=== PATIENT | male | born 1990 | race Two or more races ===

== ENCOUNTER 2023-02-11 22:55 | Inpatient (IN) | payer MEDICAID, OTHER ==
[~2023-02-11] VITALS: Ht 182.9 cm; Wt 73.8 kg
[2023-02-11 23:55] LABS: Basophils # (auto) 0.1 10 ^3/uL (0-0.2); Lymphocytes # (auto) 1.4 10 ^3/uL (0.4-5.4)
[2023-02-11 23:56] LABS: Basophils % (auto) 0.4 % (0.0-2.0); Eosinophils # (auto) 0.1 10 ^3/uL (0-0.8); Eosinophils % (auto) 0.8 % (0.0-7.0); Hematocrit 34.7 % (41.0-53.0); Hemoglobin 11.1 g/dL (13.5-17.5); Lymphocytes % (auto) 7.9 % (10.0-50.0); Mean Corpuscular Hemoglobin 23.8 pg (28.0-32.0); Mean Corpuscular Hgb Conc. 32.1 g/dL (32.0-36.0); Mean Corpuscular Volume 74.1 fL (80.0-100.0); Monocytes # (auto) 1.6 10 ^3/uL (0-1.3); Monocytes % (auto) 9.2 % (0.0-12.0); Neutrophils # (auto) 14.3 10 ^3/uL (1.6-8.6); Neutrophils % (auto) 81.7 % (37.0-80.0); Nucleated Red Blood Cells % 0.1 %; Red Blood Cells 4.68 10^6/uL (4.5-5.90); Red Cell Distribution Width 19.2 % (11.8-14.3); White Blood Cell 17.5 10^3/uL (4.4-10.8)
[2023-02-12] VITALS (7 sets, daily range): BP systolic 113; BP diastolic 58; PULSE 64–92; RESP 16–27; TEMP 97.4; O2SAT 95–100
[2023-02-12] MEDS ORDERED: IPRATROPIUM BROM 0.5 MG/2.5ML INH SOL NEB ONE
[2023-02-12 00:12] LABS: INR 1.15 (0.9-1.15); Partial Thromboplastin Time 29.6 SEC (24.5-34.5)
[2023-02-12 00:13] LABS: Alanine Aminotransferase 398 U/L (7-40); Albumin 4.2 g/dL (3.2-4.8); Alkaline Phosphatase 239 U/L (46-116); Anion Gap 8 (5-15); Aspartate Aminotransferase 210 U/L (13-40); BUN/Creatinine Ratio 22.9 (10.0-20.0); Blood Urea Nitrogen 8 mg/dL (9-23); Calcium 9.5 mg/dL (8.7-10.4); Carbon Dioxide 28 mmol/L (20-30); Chloride 96 mmol/L (98-107); Glucose 100 mg/dL (74-106); Potassium 3.7 mmol/L (3.5-5.1); Sodium 132 mmol/L (136-145)
[2023-02-12 00:14] LABS: Bilirubin, Total 0.7 mg/dL (0.2-1.0); Total Protein 8.5 g/dL (5.7-8.2)
[2023-02-12] MEDS ORDERED: TOBRAMYCIN 300 MG/5 ML NEB SOLN NEB ONE (01:00)
[2023-02-12] MEDS ORDERED: IBUPROFEN 100MG/5ML ORAL SUSP 100 MG/5 ML UD GT ONE (01:00)
[2023-02-12] MEDS ORDERED: ACETAMINOPHEN 650 mg PER 20.3 mL UD GT ONE (01:00)
[2023-02-12] MEDS ORDERED: LACTATED RINGER'S 2,050 ML IV ONE (01:00)
[2023-02-12] MEDS ORDERED: DexAMETHasone SOD PHOS 10MG/1ML VIAL INJ IV ONE (01:00)
[2023-02-12] MEDS ORDERED: VANCOMYCIN 1GM/200ML 250 ML IV ONE (01:00)
[2023-02-12] MEDS ORDERED: PIPERACILLIN-TAZOB 3.375GM 100 ML IV ONE (01:00)
[2023-02-12] MEDS ORDERED: ACETYLCYSTEINE 20%(200MG/ML) SOL 4ML NEB ONE ×2 (01:00→04:00)
[2023-02-12] MEDS ORDERED: ALBUTEROL MEDNEB 2.5 mg/3ml NEB NEB ONE ×3 (01:15→04:00)
[2023-02-12] MEDS ORDERED: IOHEXOL 350 MG/ML 100ML IJ ONE (01:57)
[2023-02-12 02:48] LABS: Urine Bacteria NONE SEEN /hpf (None Seen); Urine Blood Negative /uL (Negative); Urine Clarity Clear (Clear); Urine Color Yellow (Yellow); Urine Protein, UAD 1+ (Negative); Urine WBC 2 /hpf (0 - 3)
[2023-02-12] MEDS ORDERED: VANCOMYCIN PER PHARMACY 0 MG IV SCH (07:00)
[2023-02-12] MEDS ORDERED: D5W/SOD CHLO 0.9% 1,000 ML IV SCH (07:00)
[2023-02-12] MEDS ORDERED: NITROGLYCERIN 0.4 MG SL TAB SL PRN (07:00)
[2023-02-12] MEDS ORDERED: MORPHINE SULFATE INJ 2 MG/ml SYRG IV PRN (07:00)
[2023-02-12 08:28] LABS: Basophils # (auto) 0 10 ^3/uL (0-0.2); Basophils % (auto) 0.2 % (0.0-2.0); Eosinophils # (auto) 0 10 ^3/uL (0-0.8); Hematocrit 32.7 % (41.0-53.0); Hemoglobin 9.9 g/dL (13.5-17.5); Lymphocytes # (auto) 0.6 10 ^3/uL (0.4-5.4); Mean Corpuscular Hemoglobin 22.3 pg (28.0-32.0); Mean Corpuscular Hgb Conc. 30.3 g/dL (32.0-36.0); Mean Corpuscular Volume 73.7 fL (80.0-100.0); Monocytes # (auto) 0.3 10 ^3/uL (0-1.3); Monocytes % (auto) 1.7 % (0.0-12.0); Neutrophils # (auto) 17.9 10 ^3/uL (1.6-8.6); Neutrophils % (auto) 95.1 % (37.0-80.0); Red Blood Cells 4.43 10^6/uL (4.5-5.90); Red Cell Distribution Width 19.3 % (11.8-14.3); White Blood Cell 18.9 10^3/uL (4.4-10.8)
[2023-02-12 08:46] LABS: % Iron Saturation 9.4 % (20-55); Alanine Aminotransferase 310 U/L (7-40); Albumin 3.7 g/dL (3.2-4.8); Alkaline Phosphatase 196 U/L (46-116); Anion Gap 6 (5-15); Aspartate Aminotransferase 108 U/L (13-40); BUN/Creatinine Ratio 18.8 (10.0-20.0); Blood Urea Nitrogen 6 mg/dL (9-23); Calcium 8.9 mg/dL (8.5-10.1); Carbon Dioxide 29 mmol/L (20-30); Chloride 100 mmol/L (98-107); Glucose 132 mg/dL (74-106); LDL Cholesterol 75 mg/dL (< 100); Potassium 3.9 mmol/L (3.5-5.1); Sodium 135 mmol/L (136-145); Triglycerides 69 mg/dL (< 150)
[2023-02-12 08:47] LABS: Bilirubin, Total 0.6 mg/dL (0.2-1.0); Cholesterol 110 mg/dL (< 200); HDL Cholesterol 21 mg/dL (40-59); Total Protein 7.6 g/dL (5.7-8.2)
[2023-02-12 08:55] LABS: CRP High Sensitivity 9.14 mg/dL (<1.0)
[2023-02-12] MEDS ORDERED: EPINEPHrine HCL 1 MG/1 ML AMP ONE ×2 (09:01→09:11)
[2023-02-12] MEDS ORDERED: SODIUM CHLORIDE LOCK 10 ML ONE (09:01)
[2023-02-12] MEDS ORDERED: LIDOCAINE 2%HCL (LOCAL ANESTH.) INJ 20ML MDV ONE ×2 (09:01→09:11)
[2023-02-12] MEDS ORDERED: GLYCOPYRROLATE 0.2 MG/ML 1ML VIAL ONE (09:02)
[2023-02-12] MEDS ORDERED: fentaNYL CITRATE 100 MCG/2 ML VL ONE (09:02)
[2023-02-12] MEDS ORDERED: LIDOCAINE 2% JELLY 11ml (GLYDO) ONE (09:17)
[2023-02-12 09:33] LABS: Magnesium 1.8 mg/dL (1.6-2.6)
[2023-02-12] MEDS: MIDAZOLAM HCL 5 MG/ML-1ML VIAL ONE (09:46)
[2023-02-12] MEDS ORDERED: FLEET ENEMA(ADULT) 135 ML PR ONE (10:15)
[2023-02-12] MEDS ORDERED: VANCOMYCIN 1GM/200ML 250 ML IV SCH (11:00)
[2023-02-12 11:40] LABS: Base Excess 1.7 mmol/L (-2.0-2.0)
[2023-02-12] MEDS: ACETYLCYSTEINE 10 %(100MG/ML) SOL 4ML NEB SCH ×2 (12:31→18:29)
[2023-02-12] MEDS: ALBUTEROL MEDNEB 2.5 mg/3ml NEB NEB PRN ×2 (12:31→18:28)
[2023-02-12] MEDS: PIPERACILLIN-TAZOB 3.375GM 100 ML IV SCH ×2 (12:50→17:42)
[2023-02-12] MEDS: IPRATROPIUM BROM 0.5 MG/2.5ML INH SOL NEB PRN (18:28)
[2023-02-12] MEDS: VANCOMYCIN 1GM/200ML 250 ML IV SCH (18:55)
[2023-02-12] MEDS: DOCUSATE ORAL LIQUID 100 MG/10 ML UD GT SCH (22:39)
[2023-02-12 23:12] LABS: Free T3 2.04 pg/mL (2.3-4.2); Free T4 (Free Thyroxine) 1.16 ng/dL (0.89-1.76)
[2023-02-12] MEDS: ERGOCALCIFEROL 50,000 UNIT(1.25MG) CAP PO SCH (23:42)
[2023-02-13] VITALS (16 sets, daily range): BP systolic 112–144; BP diastolic 70–92; PULSE 78–107; RESP 20–32; TEMP 98.5–99.1; O2SAT 94–100
[2023-02-13] MEDS: ALBUTEROL MEDNEB 2.5 mg/3ml NEB NEB PRN ×4 (00:24→19:09)
[2023-02-13] MEDS: IPRATROPIUM BROM 0.5 MG/2.5ML INH SOL NEB PRN (00:24)
[2023-02-13] MEDS: PIPERACILLIN-TAZOB 3.375GM 100 ML IV SCH ×3 (00:25→15:27)
[2023-02-13 00:32] LABS: Amphetamine Screen, Urine Neg (NEGATIVE); Barbiturate Scree,Urine Neg (NEGATIVE); Benzodiazephine Screen, Urine Neg (NEGATIVE); Cannabinoid Screen, Urine Neg (NEGATIVE); Cocaine Screen, Urine Neg (NEGATIVE); Opiate Scree,Urine Neg (NEGATIVE); Phencyclidine Screen, Urine Neg (NEGATIVE)
[2023-02-13] MEDS: ACETYLCYSTEINE 10 %(100MG/ML) SOL 4ML NEB SCH ×4 (00:33→19:09)
[2023-02-13] MEDS: VANCOMYCIN 1GM/200ML 250 ML IV SCH ×4 (01:30→21:16)
[2023-02-13 05:54] LABS: Basophils # (auto) 0.1 10 ^3/uL (0-0.2); Eosinophils # (auto) 0.1 10 ^3/uL (0-0.8); Eosinophils % (auto) 0.8 % (0.0-7.0); Hemoglobin 9.4 g/dL (13.5-17.5); Monocytes # (auto) 1.3 10 ^3/uL (0-1.3); Red Cell Distribution Width 19.2 % (11.8-14.3)
[2023-02-13 05:55] LABS: Basophils % (auto) 1.2 % (0.0-2.0); Lymphocytes # (auto) 2.4 10 ^3/uL (0.4-5.4); Lymphocytes % (auto) 18.9 % (10.0-50.0); Mean Corpuscular Hemoglobin 23.1 pg (28.0-32.0); Mean Corpuscular Hgb Conc. 31.4 g/dL (32.0-36.0); Mean Corpuscular Volume 73.7 fL (80.0-100.0); Neutrophils % (auto) 69.1 % (37.0-80.0); Red Blood Cells 4.08 10^6/uL (4.5-5.90); White Blood Cell 12.9 10^3/uL (4.4-10.8)
[2023-02-13 06:11] LABS: Alanine Aminotransferase 167 U/L (7-40); Albumin 2.7 g/dL (3.2-4.8); Alkaline Phosphatase 123 U/L (46-116); Anion Gap 11 (5-15); Aspartate Aminotransferase 35 U/L (13-40); BUN/Creatinine Ratio 31.3 (10.0-20.0); Bilirubin, Total 0.3 mg/dL (0.2-1.0); Blood Urea Nitrogen 5 mg/dL (9-23); Calcium 6.8 mg/dL (8.5-10.1); Carbon Dioxide 25 mmol/L (20-30); Chloride 101 mmol/L (98-107); Glucose 86 mg/dL (74-106); Potassium 2.9 mmol/L (3.5-5.1); Sodium 137 mmol/L (136-145); Total Protein 5.4 g/dL (5.7-8.2)
[2023-02-13 06:20] LABS: CRP High Sensitivity 3.73 mg/dL (<1.0)
[2023-02-13] MEDS: CALCIUM GLUC 1,000mg/50ml-NS 50 ML IV SCH ×2 (08:21→09:01)
[2023-02-13] MEDS: POTASSIUM CHL 20MEQ/100ML 100 ML IV SCH ×2 (09:38→11:36)
[2023-02-13] MEDS: DOCUSATE ORAL LIQUID 100 MG/10 ML UD GT SCH ×2 (10:00→21:16)
[2023-02-13] MEDS ORDERED: NALOXONE HCL 0.4 MG/ML VIAL ONE (10:38)
[2023-02-13] MEDS ORDERED: SODIUM CHLORIDE LOCK 10 ML ONE (10:39)
[2023-02-13] MEDS ORDERED: FLUMAZENIL 0.1 MG/ML INJ 10ML MDV IV ONE (10:39)
[2023-02-13] MEDS ORDERED: LIDOCAINE 2%HCL (LOCAL ANESTH.) INJ 20ML MDV ONE (10:39)
[2023-02-13] MEDS ORDERED: EPINEPHrine HCL 1 MG/1 ML AMP ONE (10:39)
[2023-02-13] MEDS ORDERED: diphenhdrAMINE HCL 50 MG/1 ML VL ONE (10:40)
[2023-02-13] MEDS ORDERED: GLYCOPYRROLATE 0.2 MG/ML 1ML VIAL ONE (10:40)
[2023-02-13] MEDS ORDERED: MIDAZOLAM HCL 5 MG/ML-1ML VIAL ONE (10:40)
[2023-02-13] MEDS: MIDAZOLAM HCL 5 MG/ML-1ML VIAL ONE ×2 (11:03→11:04)
[2023-02-13] MEDS: fentaNYL CITRATE 100 MCG/2 ML VL ONE ×3 (11:03→11:08)
[2023-02-13] MEDS ORDERED: IRON SUCROSE COMPLEX 200 MG in SODIUM CHL 0.9% 100 ML IV SCH (12:00)
[2023-02-13] MEDS: ENOXAPARIN SOD 40 MG/0.4 ML SYRINGE SC SCH (13:35)
[2023-02-13] MEDS: SODIUM FERR GLUC 62.5MG/5ML 125 MG in SODIUM CHL 0.9% 100 ML IV SCH (14:23)
[2023-02-14] VITALS (31 sets, daily range): BP systolic 102–131; BP diastolic 62–88; PULSE 66–103; RESP 18–33; TEMP 98.5–100.3; O2SAT 94–100
[2023-02-14] MEDS: ALBUTEROL MEDNEB 2.5 mg/3ml NEB NEB PRN ×4 (00:06→18:04)
[2023-02-14] MEDS: ACETYLCYSTEINE 10 %(100MG/ML) SOL 4ML NEB SCH ×4 (00:06→18:04)
[2023-02-14] MEDS: PIPERACILLIN-TAZOB 3.375GM 100 ML IV SCH ×5 (00:36→18:08)
[2023-02-14] MEDS: VANCOMYCIN 1GM/200ML 250 ML IV SCH ×4 (00:37→18:56)
[2023-02-14 04:34] LABS: Eosinophils # (auto) 0.2 10 ^3/uL (0-0.8); Eosinophils % (auto) 1.1 % (0.0-7.0); Hemoglobin 9.7 g/dL (13.5-17.5); Monocytes # (auto) 1.6 10 ^3/uL (0-1.3)
[2023-02-14 04:37] LABS: Basophils # (auto) 0.1 10 ^3/uL (0-0.2); Basophils % (auto) 0.3 % (0.0-2.0); Hematocrit 31.2 % (41.0-53.0); Lymphocytes # (auto) 1.3 10 ^3/uL (0.4-5.4); Lymphocytes % (auto) 8.1 % (10.0-50.0); Mean Corpuscular Hemoglobin 23.1 pg (28.0-32.0); Mean Corpuscular Hgb Conc. 31.1 g/dL (32.0-36.0); Mean Corpuscular Volume 74.2 fL (80.0-100.0); Monocytes % (auto) 10.3 % (0.0-12.0); Neutrophils # (auto) 12.6 10 ^3/uL (1.6-8.6); Neutrophils % (auto) 80.2 % (37.0-80.0); Red Blood Cells 4.21 10^6/uL (4.5-5.90); Red Cell Distribution Width 19.3 % (11.8-14.3); White Blood Cell 15.7 10^3/uL (4.4-10.8)
[2023-02-14 05:08] LABS: Alanine Aminotransferase 168 U/L (7-40); Albumin 3.7 g/dL (3.2-4.8); Alkaline Phosphatase 161 U/L (46-116); Aspartate Aminotransferase 33 U/L (13-40); BUN/Creatinine Ratio 7.7 (10.0-20.0); Bilirubin, Total 0.5 mg/dL (0.2-1.0); Blood Urea Nitrogen 5 mg/dL (9-23); Glucose 97 mg/dL (74-106); Total Protein 7.4 g/dL (5.7-8.2)
[2023-02-14 05:16] LABS: Chloride 103 mmol/L (98-107); Potassium 3.2 mmol/L (3.5-5.1); Sodium 138 mmol/L (136-145)
[2023-02-14 05:18] LABS: CRP High Sensitivity 4.76 mg/dL (<1.0)
[2023-02-14 05:19] LABS: Anion Gap 10 (5-15); Calcium 8.9 mg/dL (8.7-10.4); Carbon Dioxide 25 mmol/L (20-30)
[2023-02-14] MEDS: IPRATROPIUM BROM 0.5 MG/2.5ML INH SOL NEB PRN ×3 (05:58→18:04)
[2023-02-14] MEDS: DOCUSATE ORAL LIQUID 100 MG/10 ML UD GT SCH ×2 (10:52→22:00)
[2023-02-14] MEDS: ENOXAPARIN SOD 40 MG/0.4 ML SYRINGE SC SCH (10:53)
[2023-02-14 11:34] LABS: Base Excess 2.2 mmol/L (-2.0-2.0)
[2023-02-14] MEDS: SODIUM FERR GLUC 62.5MG/5ML 125 MG in SODIUM CHL 0.9% 100 ML IV SCH (12:20)
[2023-02-14] MEDS ORDERED: CLINIMIX PER PHARMACY 0 ML IV SCH (17:00)
[2023-02-14] MEDS: POTASSIUM CHL 20MEQ/100ML 100 ML IV SCH ×2 (18:00→20:56)
[2023-02-14 19:05] LABS: Magnesium 1.8 mg/dL (1.6-2.6)
[2023-02-14 19:06] LABS: Phosphorus 3.8 mg/dL (2.4-5.1)
[2023-02-14] MEDS ORDERED: AMINO ACID INFUSION IN D10W 1,000 ML IV NR (20:00)
[2023-02-15] VITALS (27 sets, daily range): BP systolic 92–140; BP diastolic 50–91; PULSE 75–115; RESP 17–40; TEMP 98.7–100.3; O2SAT 8–99
[2023-02-15] MEDS ORDERED: DEXTROSE (50%) 50ML SYRG IV SCH
[2023-02-15] MEDS: IPRATROPIUM BROM 0.5 MG/2.5ML INH SOL NEB PRN (00:20)
[2023-02-15] MEDS: ACETYLCYSTEINE 10 %(100MG/ML) SOL 4ML NEB SCH ×5 (00:20→23:08)
[2023-02-15] MEDS: ALBUTEROL MEDNEB 2.5 mg/3ml NEB NEB PRN ×5 (00:20→23:08)
[2023-02-15] MEDS: VANCOMYCIN 1GM/200ML 250 ML IV SCH (01:00)
[2023-02-15] MEDS: POTASSIUM CHL 20MEQ/100ML 100 ML IV SCH (01:46)
[2023-02-15] MEDS: PIPERACILLIN-TAZOB 3.375GM 100 ML IV SCH ×4 (01:47→17:33)
[2023-02-15 05:04] LABS: Alanine Aminotransferase 112 U/L (7-40); Albumin 3.6 g/dL (3.2-4.8); Alkaline Phosphatase 144 U/L (46-116); Anion Gap 6 (5-15); Aspartate Aminotransferase 18 U/L (13-40); BUN/Creatinine Ratio 6.1 (10.0-20.0); Bilirubin, Total 0.6 mg/dL (0.2-1.0); Blood Urea Nitrogen 5 mg/dL (9-23); Calcium 8.8 mg/dL (8.7-10.4); Carbon Dioxide 27 mmol/L (20-30); Chloride 103 mmol/L (98-107); Glucose 107 mg/dL (74-106); Magnesium 1.8 mg/dL (1.6-2.6); Phosphorus 3.5 mg/dL (2.4-5.1); Potassium 3.8 mmol/L (3.5-5.1); Sodium 136 mmol/L (136-145); Total Protein 7.3 g/dL (5.7-8.2)
[2023-02-15] MEDS: ACCU-CHEK COMFORT CURVE STRIP VI SCH ×4 (06:00→17:22)
[2023-02-15] MEDS: InsuLIN REG 1unit/0.01ml Soln (100units/ml) SC SCH ×4 (06:00→17:22)
[2023-02-15] MEDS: DOCUSATE ORAL LIQUID 100 MG/10 ML UD GT SCH ×2 (07:59→22:00)
[2023-02-15] MEDS: ENOXAPARIN SOD 40 MG/0.4 ML SYRINGE SC SCH (08:40)
[2023-02-15] MEDS: SODIUM FERR GLUC 62.5MG/5ML 125 MG in SODIUM CHL 0.9% 100 ML IV SCH (12:00)
[2023-02-15] MEDS ORDERED: Jevity 1.2 Cal/Fiber 1 Liter GT SCH (15:00)
[2023-02-15] MEDS ORDERED: AMINO ACID INFUSION IN D10W 1,000 ML IV NR (20:00)
[2023-02-16] VITALS (28 sets, daily range): BP systolic 82–133; BP diastolic 38–88; PULSE 67–107; RESP 12–33; TEMP 98–100.6; O2SAT 92–100
[2023-02-16] MEDS: PIPERACILLIN-TAZOB 3.375GM 100 ML IV SCH ×2 (01:11→06:18)
[2023-02-16] MEDS: ACETAMINOPHEN 650 mg PER 20.3 mL UD PO PRN (01:12)
[2023-02-16 05:35] LABS: Basophils # (auto) 0 10 ^3/uL (0-0.2); Basophils % (auto) 0.2 % (0.0-2.0); Eosinophils # (auto) 0.2 10 ^3/uL (0-0.8); Eosinophils % (auto) 0.8 % (0.0-7.0); Hematocrit 33.1 % (41.0-53.0); Hemoglobin 10.1 g/dL (13.5-17.5); Mean Corpuscular Hemoglobin 22.8 pg (28.0-32.0); Mean Corpuscular Hgb Conc. 30.4 g/dL (32.0-36.0); Mean Corpuscular Volume 75.1 fL (80.0-100.0); Monocytes # (auto) 1.8 10 ^3/uL (0-1.3); Monocytes % (auto) 8.4 % (0.0-12.0); Neutrophils # (auto) 17.8 10 ^3/uL (1.6-8.6); Neutrophils % (auto) 81.6 % (37.0-80.0); Red Blood Cells 4.41 10^6/uL (4.5-5.90); Red Cell Distribution Width 19.7 % (11.8-14.3); White Blood Cell 21.8 10^3/uL (4.4-10.8)
[2023-02-16 05:48] LABS: Alanine Aminotransferase 84 U/L (7-40); Albumin 3.4 g/dL (3.2-4.8); Alkaline Phosphatase 140 U/L (46-116); Anion Gap 9 (5-15); Aspartate Aminotransferase 15 U/L (13-40); BUN/Creatinine Ratio 7.4 (10.0-20.0); Blood Urea Nitrogen 7 mg/dL (9-23); Calcium 8.6 mg/dL (8.7-10.4); Carbon Dioxide 25 mmol/L (20-30); Chloride 101 mmol/L (98-107); Glucose 102 mg/dL (74-106); Magnesium 1.9 mg/dL (1.6-2.6); Phosphorus 3.9 mg/dL (2.4-5.1); Potassium 3.8 mmol/L (3.5-5.1); Sodium 135 mmol/L (136-145)
[2023-02-16 05:49] LABS: Bilirubin, Total 0.7 mg/dL (0.2-1.0)
[2023-02-16] MEDS: ACCU-CHEK COMFORT CURVE STRIP VI SCH ×3 (06:00→12:01)
[2023-02-16] MEDS: InsuLIN REG 1unit/0.01ml Soln (100units/ml) SC SCH ×3 (06:00→12:00)
[2023-02-16] MEDS: ACETYLCYSTEINE 10 %(100MG/ML) SOL 4ML NEB SCH ×3 (06:08→18:20)
[2023-02-16] MEDS: IPRATROPIUM BROM 0.5 MG/2.5ML INH SOL NEB PRN ×3 (06:08→18:23)
[2023-02-16] MEDS: ALBUTEROL MEDNEB 2.5 mg/3ml NEB NEB PRN ×3 (06:08→18:23)
[2023-02-16 08:39] LABS: Base Excess 1.8 mmol/L (-2.0-2.0)
[2023-02-16] MEDS ORDERED: SODIUM CHLORIDE LOCK 10 ML ONE (09:33)
[2023-02-16] MEDS ORDERED: LIDOCAINE 2%HCL (LOCAL ANESTH.) INJ 20ML MDV ONE (09:33)
[2023-02-16] MEDS ORDERED: LIDOCAINE 2% JELLY 11ml (GLYDO) ONE (09:33)
[2023-02-16] MEDS ORDERED: EPINEPHrine HCL 1 MG/1 ML AMP ONE (09:33)
[2023-02-16] MEDS ORDERED: GLYCOPYRROLATE 0.2 MG/ML 1ML VIAL ONE (09:33)
[2023-02-16] MEDS ORDERED: MIDAZOLAM HCL 5 MG/ML-1ML VIAL ONE (09:34)
[2023-02-16] MEDS ORDERED: fentaNYL CITRATE 100 MCG/2 ML VL ONE (09:35)
[2023-02-16] MEDS ORDERED: NALOXONE HCL 0.4 MG/ML VIAL ONE (09:45)
[2023-02-16] MEDS ORDERED: FLUMAZENIL 0.1 MG/ML INJ 10ML MDV IV ONE (09:45)
[2023-02-16] MEDS: DOCUSATE ORAL LIQUID 100 MG/10 ML UD GT SCH ×3 (10:00→22:00)
[2023-02-16] MEDS: ENOXAPARIN SOD 40 MG/0.4 ML SYRINGE SC SCH (10:34)
[2023-02-16] MEDS ORDERED: levoFLOXacin 750MG 150 ML IV ONE (11:00)
[2023-02-16] MEDS: SODIUM FERR GLUC 62.5MG/5ML 125 MG in SODIUM CHL 0.9% 100 ML IV SCH (12:50)
[2023-02-16] MEDS ORDERED: VANCOMYCIN 1GM/200ML 250 ML IV SCH (13:00)
[2023-02-17] VITALS (25 sets, daily range): BP systolic 102–146; BP diastolic 56–85; PULSE 9–111; RESP 15–37; TEMP 97.7–101.2; O2SAT 92–99
[2023-02-17] MEDS: ALBUTEROL MEDNEB 2.5 mg/3ml NEB NEB PRN ×4 (00:24→18:25)
[2023-02-17] MEDS: IPRATROPIUM BROM 0.5 MG/2.5ML INH SOL NEB PRN ×4 (00:24→18:25)
[2023-02-17] MEDS: ACETYLCYSTEINE 10 %(100MG/ML) SOL 4ML NEB SCH ×4 (00:24→18:25)
[2023-02-17 08:25] LABS: Base Excess 1.2 mmol/L (-2.0-2.0)
[2023-02-17 09:12] LABS: Basophils # (auto) 0.1 10 ^3/uL (0-0.2); Eosinophils # (auto) 0.2 10 ^3/uL (0-0.8); Hemoglobin 9.5 g/dL (13.5-17.5)
[2023-02-17 09:14] LABS: Basophils % (auto) 0.5 % (0.0-2.0); Eosinophils % (auto) 1.2 % (0.0-7.0); Lymphocytes # (auto) 1.8 10 ^3/uL (0.4-5.4); Lymphocytes % (auto) 9.4 % (10.0-50.0); Mean Corpuscular Hemoglobin 22.6 pg (28.0-32.0); Mean Corpuscular Hgb Conc. 30.6 g/dL (32.0-36.0); Mean Corpuscular Volume 73.8 fL (80.0-100.0); Monocytes # (auto) 1.6 10 ^3/uL (0-1.3); Neutrophils # (auto) 15.8 10 ^3/uL (1.6-8.6); Neutrophils % (auto) 80.9 % (37.0-80.0); Red Cell Distribution Width 19.5 % (11.8-14.3); White Blood Cell 19.6 10^3/uL (4.4-10.8)
[2023-02-17 09:36] LABS: Alanine Aminotransferase 45 U/L (7-40); Albumin 3.2 g/dL (3.2-4.8); Alkaline Phosphatase 105 U/L (46-116); Anion Gap 9 (5-15); Aspartate Aminotransferase 11 U/L (13-40); BUN/Creatinine Ratio 9.7 (10.0-20.0); Bilirubin, Total 0.4 mg/dL (0.2-1.0); Blood Urea Nitrogen 6 mg/dL (9-23); Calcium 8.1 mg/dL (8.5-10.1); Carbon Dioxide 26 mmol/L (20-30); Chloride 102 mmol/L (98-107); Glucose 91 mg/dL (74-106); Sodium 137 mmol/L (136-145); Total Protein 6.4 g/dL (5.7-8.2)
[2023-02-17] MEDS: DOCUSATE ORAL LIQUID 100 MG/10 ML UD GT SCH ×3 (09:38→22:00)
[2023-02-17] MEDS: levoFLOXacin 750MG 150 ML IV SCH (09:38)
[2023-02-17] MEDS: ENOXAPARIN SOD 40 MG/0.4 ML SYRINGE SC SCH (09:38)
[2023-02-17 09:44] LABS: CRP High Sensitivity 7.13 mg/dL (<1.0)
[2023-02-17] MEDS ORDERED: levoFLOXacin 750MG 150 ML IV SCH (10:00)
[2023-02-17] MEDS: POTASSIUM CHL 20MEQ/100ML 100 ML IV SCH ×3 (11:28→14:30)
[2023-02-17] MEDS: Ensure HIGH Protein Chocolate 8oz Bottle PO SCH ×2 (12:00→18:27)
[2023-02-17] MEDS ORDERED: BACTRIM 5MG/KG Q8HR PER RX 10 ML IV SCH (12:00)
[2023-02-17] MEDS: SODIUM FERR GLUC 62.5MG/5ML 125 MG in SODIUM CHL 0.9% 100 ML IV SCH (12:25)
[2023-02-17] MEDS ORDERED: SULFAMETH-TRIMETH 80/16MG-ML 15 ML in D5W 5% 500 ML IV SCH (14:00)
[2023-02-17] MEDS: SULFAMETH-TRIMETH 80/16MG-ML 20 ML in D5W 5% 500 ML IV SCH ×2 (16:44→21:54)
[2023-02-17] MEDS ORDERED: CALCIUM GLUC 1,000mg/50ml-NS 50 ML IV ONE (21:00)
[2023-02-17] MEDS: ONDANSETRON HCL 4 MG/2 ML VIAL IV PRN (23:22)
[2023-02-17] MEDS: ACETAMINOPHEN 650 mg PER 20.3 mL UD PO PRN (23:49)
[2023-02-18] VITALS (22 sets, daily range): BP systolic 99–130; BP diastolic 59–84; PULSE 69–111; RESP 12–35; TEMP 97.9–101.1; O2SAT 93–98
[2023-02-18] MEDS: IPRATROPIUM BROM 0.5 MG/2.5ML INH SOL NEB PRN ×4 (00:23→18:07)
[2023-02-18] MEDS: ALBUTEROL MEDNEB 2.5 mg/3ml NEB NEB PRN ×4 (00:24→18:07)
[2023-02-18] MEDS: ACETYLCYSTEINE 10 %(100MG/ML) SOL 4ML NEB SCH ×4 (00:24→18:07)
[2023-02-18 05:13] LABS: Hemoglobin 9.3 g/dL (13.5-17.5); Mean Corpuscular Volume 74.4 fL (80.0-100.0); Red Cell Distribution Width 19.1 % (11.8-14.3)
[2023-02-18 05:15] LABS: Basophils # (auto) 0.1 10 ^3/uL (0-0.2); Basophils % (auto) 0.3 % (0.0-2.0); Eosinophils # (auto) 0.2 10 ^3/uL (0-0.8); Eosinophils % (auto) 1.1 % (0.0-7.0); Lymphocytes # (auto) 3.2 10 ^3/uL (0.4-5.4); Lymphocytes % (auto) 18.8 % (10.0-50.0); Mean Corpuscular Hemoglobin 23.1 pg (28.0-32.0); Monocytes # (auto) 1.3 10 ^3/uL (0-1.3); Monocytes % (auto) 7.5 % (0.0-12.0); Neutrophils # (auto) 12.5 10 ^3/uL (1.6-8.6); Neutrophils % (auto) 72.3 % (37.0-80.0); Red Blood Cells 4.03 10^6/uL (4.5-5.90); White Blood Cell 17.2 10^3/uL (4.4-10.8)
[2023-02-18 05:22] LABS: Alanine Aminotransferase 43 U/L (7-40); Albumin 3.3 g/dL (3.2-4.8); Alkaline Phosphatase 111 U/L (46-116); Anion Gap 8 (5-15); Aspartate Aminotransferase 16 U/L (13-40); BUN/Creatinine Ratio 6.3 (10.0-20.0); Bilirubin, Total 0.2 mg/dL (0.2-1.0); Blood Urea Nitrogen 5 mg/dL (9-23); Carbon Dioxide 25 mmol/L (20-30); Chloride 101 mmol/L (98-107); Glucose 94 mg/dL (74-106); Potassium 3.9 mmol/L (3.5-5.1); Sodium 134 mmol/L (136-145); Total Protein 6.5 g/dL (5.7-8.2)
[2023-02-18 05:30] LABS: CRP High Sensitivity 7.78 mg/dL (<1.0)
[2023-02-18] MEDS: SULFAMETH-TRIMETH 80/16MG-ML 20 ML in D5W 5% 500 ML IV SCH ×3 (06:18→22:12)
[2023-02-18] MEDS: Ensure HIGH Protein Chocolate 8oz Bottle PO SCH ×3 (08:00→18:00)
[2023-02-18] MEDS: ENOXAPARIN SOD 40 MG/0.4 ML SYRINGE SC SCH (09:38)
[2023-02-18] MEDS: levoFLOXacin 750MG 150 ML IV SCH (09:38)
[2023-02-18] MEDS: DOCUSATE ORAL LIQUID 100 MG/10 ML UD GT SCH ×2 (09:38→22:11)
[2023-02-18] MEDS: ONDANSETRON HCL 4 MG/2 ML VIAL IV PRN (23:49)
[2023-02-19] VITALS (37 sets, daily range): BP systolic 94–118; BP diastolic 52–74; PULSE 73–104; RESP 12–31; TEMP 97.9–99.7; O2SAT 92–99
[2023-02-19] MEDS: ACETYLCYSTEINE 10 %(100MG/ML) SOL 4ML NEB SCH ×5 (01:15→23:46)
[2023-02-19] MEDS: MORPHINE SULFATE INJ 2 MG/ml SYRG IV PRN (02:07)
[2023-02-19 05:24] LABS: Calcium 9.2 mg/dL (8.5-10.1); Chloride 100 mmol/L (98-107); Potassium 4.2 mmol/L (3.5-5.1); Sodium 133 mmol/L (136-145)
[2023-02-19 05:25] LABS: Anion Gap 7 (5-15); Carbon Dioxide 26 mmol/L (20-30)
[2023-02-19 05:30] LABS: BUN/Creatinine Ratio 9.9 (10.0-20.0); Blood Urea Nitrogen 8 mg/dL (9-23); Glucose 106 mg/dL (74-106)
[2023-02-19] MEDS: SULFAMETH-TRIMETH 80/16MG-ML 20 ML in D5W 5% 500 ML IV SCH ×3 (05:31→23:11)
[2023-02-19 06:13] LABS: Red Blood Cells 3.99 10^6/uL (4.5-5.90)
[2023-02-19 06:15] LABS: Hematocrit 29.3 % (41.0-53.0); Hemoglobin 9.2 g/dL (13.5-17.5); Mean Corpuscular Hgb Conc. 31.4 g/dL (32.0-36.0); Mean Corpuscular Volume 73.4 fL (80.0-100.0); Red Cell Distribution Width 19.7 % (11.8-14.3); White Blood Cell 15.5 10^3/uL (4.4-10.8)
[2023-02-19 06:19] LABS: Band Neutrophils % (manual) 0; Basophils % (manual) 0 (0.0-2.0); Blast Cells 0; Metamyelocytes % 0; Myelocytes % 0; Promyelocytes % 0; Reactive Lymphocytes 0
[2023-02-19] MEDS: ALBUTEROL MEDNEB 2.5 mg/3ml NEB NEB PRN ×4 (06:49→23:46)
[2023-02-19] MEDS: Ensure HIGH Protein Chocolate 8oz Bottle PO SCH ×3 (08:00→18:18)
[2023-02-19] MEDS: ENOXAPARIN SOD 40 MG/0.4 ML SYRINGE SC SCH (11:09)
[2023-02-19] MEDS: DOCUSATE ORAL LIQUID 100 MG/10 ML UD GT SCH ×2 (11:09→22:00)
[2023-02-19] MEDS: levoFLOXacin 750MG 150 ML IV SCH (11:10)
[2023-02-19 11:50] LABS: Eosinophils % (manual) 2 (0-7); Lymphocytes % (manual) 13 (10.0-50.0); Monocytes % (manual) 7 (0-12); Platelet Estimate Adequate
[2023-02-19 11:51] LABS: Hypochromia Moderate
[2023-02-19] MEDS: IPRATROPIUM BROM 0.5 MG/2.5ML INH SOL NEB PRN (13:11)
[2023-02-19] MEDS: ERGOCALCIFEROL 50,000 UNIT(1.25MG) CAP PO SCH (22:00)
[2023-02-19] MEDS: ONDANSETRON HCL 4 MG/2 ML VIAL IV PRN (23:40)
[2023-02-20] VITALS (20 sets, daily range): BP systolic 94–127; BP diastolic 59–85; PULSE 66–102; RESP 14–33; TEMP 97.5–100.7; O2SAT 92–98
[2023-02-20] MEDS: MORPHINE SULFATE INJ 2 MG/ml SYRG IV PRN ×3 (00:07→22:05)
[2023-02-20] MEDS: ACETAMINOPHEN 650 mg PER 20.3 mL UD PO PRN (00:08)
[2023-02-20] MEDS: ALBUTEROL MEDNEB 2.5 mg/3ml NEB NEB PRN ×5 (06:59→23:41)
[2023-02-20] MEDS: ACETYLCYSTEINE 10 %(100MG/ML) SOL 4ML NEB SCH ×5 (06:59→23:41)
[2023-02-20] MEDS: IPRATROPIUM BROM 0.5 MG/2.5ML INH SOL NEB PRN ×5 (06:59→23:41)
[2023-02-20] MEDS: Ensure HIGH Protein Chocolate 8oz Bottle PO SCH ×3 (08:00→17:37)
[2023-02-20] MEDS: SULFAMETH-TRIMETH 80/16MG-ML 20 ML in D5W 5% 500 ML IV SCH (08:07)
[2023-02-20] MEDS: DOCUSATE ORAL LIQUID 100 MG/10 ML UD GT SCH ×2 (08:17→22:00)
[2023-02-20] MEDS: ENOXAPARIN SOD 40 MG/0.4 ML SYRINGE SC SCH (08:55)
[2023-02-20] MEDS: levoFLOXacin 750MG 150 ML IV SCH (08:56)
[2023-02-20 09:33] LABS: Eosinophils # (auto) 0.2 10 ^3/uL (0-0.8); Hemoglobin 9.1 g/dL (13.5-17.5); Monocytes # (auto) 0.7 10 ^3/uL (0-1.3)
[2023-02-20 09:36] LABS: Basophils # (auto) 0 10 ^3/uL (0-0.2); Basophils % (auto) 0.2 % (0.0-2.0); Eosinophils % (auto) 1.3 % (0.0-7.0); Hematocrit 29.1 % (41.0-53.0); Lymphocytes # (auto) 2.8 10 ^3/uL (0.4-5.4); Lymphocytes % (auto) 22.3 % (10.0-50.0); Mean Corpuscular Hemoglobin 23.2 pg (28.0-32.0); Mean Corpuscular Hgb Conc. 31.3 g/dL (32.0-36.0); Mean Corpuscular Volume 73.9 fL (80.0-100.0); Monocytes % (auto) 5.6 % (0.0-12.0); Neutrophils % (auto) 70.6 % (37.0-80.0); Red Blood Cells 3.93 10^6/uL (4.5-5.90); Red Cell Distribution Width 19.4 % (11.8-14.3); White Blood Cell 12.7 10^3/uL (4.4-10.8)
[2023-02-20 09:49] LABS: Anion Gap 9 (5-15); Carbon Dioxide 24 mmol/L (20-30); Chloride 97 mmol/L (98-107); Potassium 3.7 mmol/L (3.5-5.1); Sodium 130 mmol/L (136-145)
[2023-02-20 09:50] LABS: Calcium 9.3 mg/dL (8.5-10.1)
[2023-02-20 09:55] LABS: BUN/Creatinine Ratio 8.3 (10.0-20.0); Blood Urea Nitrogen 7 mg/dL (9-23); Glucose 148 mg/dL (74-106)
[2023-02-20 10:32] LABS: Magnesium 1.6 mg/dL (1.6-2.6)
[2023-02-20] MEDS: ONDANSETRON HCL 4 MG/2 ML VIAL IV PRN (10:44)
[2023-02-20] MEDS: AMPICILLIN & SULBACTAM SODIUM 3 GM in SODIUM CHL 0.9% 100 ML IV SCH ×2 (13:20→17:37)
[2023-02-21] VITALS (30 sets, daily range): BP systolic 86–116; BP diastolic 46–75; PULSE 55–108; RESP 16–36; TEMP 97.9–99; O2SAT 91–99
[2023-02-21] MEDS: AMPICILLIN & SULBACTAM SODIUM 3 GM in SODIUM CHL 0.9% 100 ML IV SCH ×4 (01:42→18:58)
[2023-02-21 05:41] LABS: Eosinophils # (auto) 0.1 10 ^3/uL (0-0.8); Eosinophils % (auto) 1.1 % (0.0-7.0); Hemoglobin 10.1 g/dL (13.5-17.5)
[2023-02-21 05:46] LABS: Basophils # (auto) 0 10 ^3/uL (0-0.2); Basophils % (auto) 0.2 % (0.0-2.0); Lymphocytes % (auto) 14.5 % (10.0-50.0); Mean Corpuscular Hemoglobin 22.9 pg (28.0-32.0); Mean Corpuscular Hgb Conc. 30.7 g/dL (32.0-36.0); Mean Corpuscular Volume 74.8 fL (80.0-100.0); Monocytes % (auto) 7.6 % (0.0-12.0); Neutrophils # (auto) 10.4 10 ^3/uL (1.6-8.6); Neutrophils % (auto) 76.6 % (37.0-80.0); Red Blood Cells 4.42 10^6/uL (4.5-5.90); White Blood Cell 13.6 10^3/uL (4.4-10.8)
[2023-02-21 06:02] LABS: Alanine Aminotransferase 38 U/L (7-40); Alkaline Phosphatase 110 U/L (46-116); Anion Gap 10 (5-15); BUN/Creatinine Ratio 9.5 (10.0-20.0); Blood Urea Nitrogen 8 mg/dL (9-23); Calcium 9.3 mg/dL (8.7-10.4); Carbon Dioxide 24 mmol/L (20-30); Chloride 97 mmol/L (98-107); Glucose 90 mg/dL (74-106); Sodium 131 mmol/L (136-145)
[2023-02-21 06:03] LABS: Albumin 3.9 g/dL (3.2-4.8); Aspartate Aminotransferase 16 U/L (13-40); Bilirubin, Total 0.2 mg/dL (0.2-1.0); Total Protein 7.8 g/dL (5.7-8.2)
[2023-02-21] MEDS: ALBUTEROL MEDNEB 2.5 mg/3ml NEB NEB PRN ×3 (06:30→18:44)
[2023-02-21] MEDS: ACETYLCYSTEINE 10 %(100MG/ML) SOL 4ML NEB SCH ×3 (06:31→18:44)
[2023-02-21] MEDS: Ensure HIGH Protein Chocolate 8oz Bottle PO SCH ×4 (08:00→18:58)
[2023-02-21] MEDS: DOCUSATE ORAL LIQUID 100 MG/10 ML UD GT SCH ×2 (08:12→22:00)
[2023-02-21] MEDS: levoFLOXacin 750MG 150 ML IV SCH (08:12)
[2023-02-21] MEDS: ENOXAPARIN SOD 40 MG/0.4 ML SYRINGE SC SCH (08:12)
[2023-02-21] MEDS: MORPHINE SULFATE INJ 2 MG/ml SYRG IV PRN ×2 (17:21→21:50)
[2023-02-21] MEDS: Juven Orange Powder PACKET 27.5gm PO SCH (18:58)
[2023-02-21] MEDS ORDERED: MAGNESIUM SULFATE 1GM/100ML 100 ML IV SCH (23:00)
[2023-02-22] VITALS (20 sets, daily range): BP systolic 98–118; BP diastolic 55–78; PULSE 80–110; RESP 13–34; TEMP 98.4–99.5; O2SAT 94–99
[2023-02-22] MEDS: ACETYLCYSTEINE 10 %(100MG/ML) SOL 4ML NEB SCH ×5 (00:20→23:57)
[2023-02-22] MEDS: ALBUTEROL MEDNEB 2.5 mg/3ml NEB NEB PRN ×4 (00:20→23:57)
[2023-02-22] MEDS: AMPICILLIN & SULBACTAM SODIUM 3 GM in SODIUM CHL 0.9% 100 ML IV SCH ×4 (01:02→19:01)
[2023-02-22] MEDS: Juven Orange Powder PACKET 27.5gm PO SCH ×2 (08:00→19:02)
[2023-02-22] MEDS: Ensure HIGH Protein Chocolate 8oz Bottle PO SCH ×3 (08:00→19:03)
[2023-02-22] MEDS: levoFLOXacin 750MG 150 ML IV SCH (09:31)
[2023-02-22] MEDS: ENOXAPARIN SOD 40 MG/0.4 ML SYRINGE SC SCH (09:31)
[2023-02-22] MEDS: DOCUSATE ORAL LIQUID 100 MG/10 ML UD GT SCH ×2 (09:32→22:00)
[2023-02-22] MEDS: ONDANSETRON HCL 4 MG/2 ML VIAL IV PRN (21:16)
[2023-02-22] MEDS: MORPHINE SULFATE INJ 2 MG/ml SYRG IV PRN (21:17)
[2023-02-22] MEDS: IPRATROPIUM BROM 0.5 MG/2.5ML INH SOL NEB PRN (23:57)
[2023-02-23] VITALS (25 sets, daily range): BP systolic 96–115; BP diastolic 59–75; PULSE 72–113; RESP 16–42; TEMP 97.7–100.4; O2SAT 93–99
[2023-02-23] MEDS: AMPICILLIN & SULBACTAM SODIUM 3 GM in SODIUM CHL 0.9% 100 ML IV SCH ×4 (00:48→18:19)
[2023-02-23 04:58] LABS: White Blood Cell 12.7 10^3/uL (4.4-10.8)
[2023-02-23 05:00] LABS: Hematocrit 32.2 % (41.0-53.0); Mean Corpuscular Hemoglobin 23.1 pg (28.0-32.0); Mean Corpuscular Hgb Conc. 31.1 g/dL (32.0-36.0); Mean Corpuscular Volume 74.3 fL (80.0-100.0); Red Blood Cells 4.34 10^6/uL (4.5-5.90)
[2023-02-23 05:04] LABS: Chloride 100 mmol/L (98-107); Sodium 134 mmol/L (136-145)
[2023-02-23 05:05] LABS: Anion Gap 7 (5-15); Calcium 9.3 mg/dL (8.7-10.4); Carbon Dioxide 27 mmol/L (20-30)
[2023-02-23 05:10] LABS: BUN/Creatinine Ratio 15.3 (10.0-20.0); Blood Urea Nitrogen 13 mg/dL (9-23); Glucose 98 mg/dL (74-106)
[2023-02-23 05:27] LABS: Red Cell Distribution Width 20.2 % (11.8-14.3)
[2023-02-23 05:28] LABS: Band Neutrophils % (manual) 0; Basophils % (manual) 0 (0.0-2.0); Blast Cells 0; Metamyelocytes % 0; Promyelocytes % 0; Reactive Lymphocytes 0
[2023-02-23 07:06] LABS: Eosinophils % (manual) 2 (0-7); Lymphocytes % (manual) 24 (10.0-50.0); Monocytes % (manual) 9 (0-12); Myelocytes % 1
[2023-02-23 07:07] LABS: Anisocytosis Slight; Hypochromia Moderate; Ovalocytes FEW
[2023-02-23 07:08] LABS: Platelet Estimate Adequate; Target Cell FEW
[2023-02-23] MEDS: Juven Orange Powder PACKET 27.5gm PO SCH ×2 (08:09→18:19)
[2023-02-23] MEDS: Ensure HIGH Protein Chocolate 8oz Bottle PO SCH ×3 (08:09→18:19)
[2023-02-23] MEDS: IPRATROPIUM BROM 0.5 MG/2.5ML INH SOL NEB PRN ×2 (08:17→18:15)
[2023-02-23] MEDS: ACETYLCYSTEINE 10 %(100MG/ML) SOL 4ML NEB SCH ×3 (08:17→18:15)
[2023-02-23] MEDS: ALBUTEROL MEDNEB 2.5 mg/3ml NEB NEB PRN ×3 (08:17→18:15)
[2023-02-23] MEDS: ENOXAPARIN SOD 40 MG/0.4 ML SYRINGE SC SCH (09:45)
[2023-02-23] MEDS: DOCUSATE ORAL LIQUID 100 MG/10 ML UD GT SCH ×2 (09:46→22:00)
[2023-02-23] MEDS: levoFLOXacin 750MG 150 ML IV SCH (09:46)
[2023-02-23 13:16] LABS: COVID19 ANTIGEN SOFIA FIA NEGATIVE (NEGATIVE)
[2023-02-23] MEDS: ONDANSETRON HCL 4 MG/2 ML VIAL IV PRN (23:08)
[2023-02-23] MEDS: MORPHINE SULFATE INJ 2 MG/ml SYRG IV PRN (23:09)
[2023-02-24] VITALS (25 sets, daily range): BP systolic 93–114; BP diastolic 59–82; PULSE 76–115; RESP 16–28; TEMP 97.7–99.1; O2SAT 7–99
[2023-02-24] MEDS: ALBUTEROL MEDNEB 2.5 mg/3ml NEB NEB PRN ×5 (00:28→23:54)
[2023-02-24] MEDS: ACETYLCYSTEINE 10 %(100MG/ML) SOL 4ML NEB SCH ×5 (00:31→23:54)
[2023-02-24] MEDS: AMPICILLIN & SULBACTAM SODIUM 3 GM in SODIUM CHL 0.9% 100 ML IV SCH ×4 (01:00→18:56)
[2023-02-24 05:08] LABS: Anion Gap 6 (5-15); Carbon Dioxide 29 mmol/L (20-30); Chloride 101 mmol/L (98-107); Sodium 136 mmol/L (136-145)
[2023-02-24 05:09] LABS: Calcium 9.8 mg/dL (8.5-10.1)
[2023-02-24 05:14] LABS: BUN/Creatinine Ratio 20.2 (10.0-20.0); Blood Urea Nitrogen 17 mg/dL (9-23); Glucose 105 mg/dL (74-106)
[2023-02-24 05:33] LABS: Basophils # (auto) 0.1 10 ^3/uL (0-0.2); Basophils % (auto) 0.4 % (0.0-2.0); Eosinophils # (auto) 0.3 10 ^3/uL (0-0.8); Monocytes # (auto) 0.9 10 ^3/uL (0-1.3)
[2023-02-24 05:36] LABS: Eosinophils % (auto) 2.3 % (0.0-7.0); Hematocrit 31.6 % (41.0-53.0); Hemoglobin 9.7 g/dL (13.5-17.5); Lymphocytes # (auto) 2.8 10 ^3/uL (0.4-5.4); Lymphocytes % (auto) 23.4 % (10.0-50.0); Mean Corpuscular Hemoglobin 22.9 pg (28.0-32.0); Mean Corpuscular Hgb Conc. 30.8 g/dL (32.0-36.0); Mean Corpuscular Volume 74.2 fL (80.0-100.0); Monocytes % (auto) 7.5 % (0.0-12.0); Neutrophils # (auto) 7.9 10 ^3/uL (1.6-8.6); Neutrophils % (auto) 66.4 % (37.0-80.0); Nucleated Red Blood Cells % 0.1 %; Red Blood Cells 4.25 10^6/uL (4.5-5.90); Red Cell Distribution Width 19.9 % (11.8-14.3); White Blood Cell 11.9 10^3/uL (4.4-10.8)
[2023-02-24] MEDS: IPRATROPIUM BROM 0.5 MG/2.5ML INH SOL NEB PRN ×2 (06:08→11:19)
[2023-02-24] MEDS: Juven Orange Powder PACKET 27.5gm PO SCH ×2 (08:00→18:56)
[2023-02-24] MEDS: Ensure HIGH Protein Chocolate 8oz Bottle PO SCH ×3 (08:00→18:56)
[2023-02-24] MEDS: levoFLOXacin 750MG 150 ML IV SCH (09:33)
[2023-02-24] MEDS: ENOXAPARIN SOD 40 MG/0.4 ML SYRINGE SC SCH (09:33)
[2023-02-24] MEDS: DOCUSATE ORAL LIQUID 100 MG/10 ML UD GT SCH ×2 (09:36→21:15)
[2023-02-24] MEDS: MORPHINE SULFATE INJ 2 MG/ml SYRG IV PRN (21:10)
[2023-02-25] VITALS (20 sets, daily range): BP systolic 97–133; BP diastolic 61–86; PULSE 72–111; RESP 17–98; TEMP 98.1–99.9; O2SAT 93–99
[2023-02-25] MEDS: AMPICILLIN & SULBACTAM SODIUM 3 GM in SODIUM CHL 0.9% 100 ML IV SCH ×4 (00:44→19:58)
[2023-02-25 05:05] LABS: Chloride 101 mmol/L (98-107); Potassium 3.8 mmol/L (3.5-5.1); Sodium 135 mmol/L (136-145)
[2023-02-25 05:06] LABS: Anion Gap 6 (5-15); Calcium 9.6 mg/dL (8.5-10.1); Carbon Dioxide 28 mmol/L (20-30)
[2023-02-25 05:11] LABS: BUN/Creatinine Ratio 20.4 (10.0-20.0); Blood Urea Nitrogen 20 mg/dL (9-23); Glucose 99 mg/dL (74-106)
[2023-02-25 05:47] LABS: Eosinophils # (auto) 0.3 10 ^3/uL (0-0.8); Eosinophils % (auto) 2.2 % (0.0-7.0)
[2023-02-25 05:53] LABS: Basophils # (auto) 0 10 ^3/uL (0-0.2); Basophils % (auto) 0.3 % (0.0-2.0); Hematocrit 32.2 % (41.0-53.0); Lymphocytes # (auto) 2.9 10 ^3/uL (0.4-5.4); Lymphocytes % (auto) 22.2 % (10.0-50.0); Mean Corpuscular Hemoglobin 22.9 pg (28.0-32.0); Mean Corpuscular Volume 73.8 fL (80.0-100.0); Monocytes % (auto) 7.3 % (0.0-12.0); Neutrophils # (auto) 8.9 10 ^3/uL (1.6-8.6); Red Blood Cells 4.37 10^6/uL (4.5-5.90); White Blood Cell 13.1 10^3/uL (4.4-10.8)
[2023-02-25] MEDS: IPRATROPIUM BROM 0.5 MG/2.5ML INH SOL NEB PRN ×3 (06:20→18:15)
[2023-02-25] MEDS: ACETYLCYSTEINE 10 %(100MG/ML) SOL 4ML NEB SCH ×3 (06:21→18:16)
[2023-02-25] MEDS: ALBUTEROL MEDNEB 2.5 mg/3ml NEB NEB PRN ×3 (06:21→18:16)
[2023-02-25] MEDS: Juven Orange Powder PACKET 27.5gm PO SCH ×2 (08:00→18:00)
[2023-02-25] MEDS: Ensure HIGH Protein Chocolate 8oz Bottle PO SCH ×3 (08:00→18:00)
[2023-02-25] MEDS: levoFLOXacin 750MG 150 ML IV SCH (10:23)
[2023-02-25] MEDS: DOCUSATE ORAL LIQUID 100 MG/10 ML UD GT SCH ×3 (10:23→22:18)
[2023-02-25] MEDS: MORPHINE SULFATE INJ 2 MG/ml SYRG IV PRN (22:19)
[2023-02-26] VITALS (34 sets, daily range): BP systolic 93–126; BP diastolic 54–86; PULSE 76–104; RESP 14–31; TEMP 97.9–99.2; O2SAT 92–100
[2023-02-26] MEDS: ALBUTEROL MEDNEB 2.5 mg/3ml NEB NEB PRN ×5 (00:22→23:57)
[2023-02-26] MEDS: IPRATROPIUM BROM 0.5 MG/2.5ML INH SOL NEB PRN ×5 (00:22→23:57)
[2023-02-26] MEDS: ACETYLCYSTEINE 10 %(100MG/ML) SOL 4ML NEB SCH ×5 (00:23→23:57)
[2023-02-26] MEDS: AMPICILLIN & SULBACTAM SODIUM 3 GM in SODIUM CHL 0.9% 100 ML IV SCH ×4 (01:00→18:39)
[2023-02-26] MEDS: DOCUSATE ORAL LIQUID 100 MG/10 ML UD GT SCH ×2 (07:51→22:21)
[2023-02-26] MEDS: levoFLOXacin 750MG 150 ML IV SCH (07:54)
[2023-02-26] MEDS: Ensure HIGH Protein Chocolate 8oz Bottle PO SCH ×3 (08:00→18:00)
[2023-02-26] MEDS: Juven Orange Powder PACKET 27.5gm PO SCH ×2 (08:00→18:00)
[2023-02-26] MEDS: ERGOCALCIFEROL 50,000 UNIT(1.25MG) CAP PO SCH (22:23)
[2023-02-26] MEDS: MORPHINE SULFATE INJ 2 MG/ml SYRG IV PRN (22:24)
[2023-02-27] VITALS (33 sets, daily range): BP systolic 90–124; BP diastolic 51–82; PULSE 79–111; RESP 11–33; TEMP 97.8–99.1; O2SAT 91–99
[2023-02-27] MEDS: AMPICILLIN & SULBACTAM SODIUM 3 GM in SODIUM CHL 0.9% 100 ML IV SCH ×4 (01:13→17:47)
[2023-02-27 05:52] LABS: Basophils # (auto) 0.1 10 ^3/uL (0-0.2); Hemoglobin 10.3 g/dL (13.5-17.5)
[2023-02-27 05:55] LABS: Basophils % (auto) 0.7 % (0.0-2.0); Eosinophils # (auto) 0.2 10 ^3/uL (0-0.8); Eosinophils % (auto) 2.5 % (0.0-7.0); Hematocrit 32.7 % (41.0-53.0); Lymphocytes % (auto) 21.1 % (10.0-50.0); Mean Corpuscular Hemoglobin 23.5 pg (28.0-32.0); Mean Corpuscular Hgb Conc. 31.4 g/dL (32.0-36.0); Mean Corpuscular Volume 74.9 fL (80.0-100.0); Monocytes # (auto) 0.6 10 ^3/uL (0-1.3); Neutrophils # (auto) 6.7 10 ^3/uL (1.6-8.6); Neutrophils % (auto) 69.7 % (37.0-80.0); Red Blood Cells 4.37 10^6/uL (4.5-5.90); White Blood Cell 9.6 10^3/uL (4.4-10.8)
[2023-02-27 05:56] LABS: Anion Gap 9 (5-15); Carbon Dioxide 27 mmol/L (20-30); Chloride 100 mmol/L (98-107); Potassium 3.2 mmol/L (3.5-5.1); Sodium 136 mmol/L (136-145)
[2023-02-27 05:57] LABS: Calcium 9.7 mg/dL (8.5-10.1)
[2023-02-27 06:02] LABS: BUN/Creatinine Ratio 31.1 (10.0-20.0); Blood Urea Nitrogen 19 mg/dL (9-23); Glucose 122 mg/dL (74-106)
[2023-02-27] MEDS: IPRATROPIUM BROM 0.5 MG/2.5ML INH SOL NEB PRN ×2 (06:34→19:23)
[2023-02-27] MEDS: ALBUTEROL MEDNEB 2.5 mg/3ml NEB NEB PRN ×3 (06:34→19:23)
[2023-02-27] MEDS: ACETYLCYSTEINE 10 %(100MG/ML) SOL 4ML NEB SCH ×3 (06:35→19:23)
[2023-02-27] MEDS: DOCUSATE ORAL LIQUID 100 MG/10 ML UD GT SCH ×2 (07:06→21:37)
[2023-02-27] MEDS: levoFLOXacin 750MG 150 ML IV SCH (07:28)
[2023-02-27] MEDS: Juven Orange Powder PACKET 27.5gm PO SCH ×2 (08:12→17:19)
[2023-02-27] MEDS: Ensure HIGH Protein Chocolate 8oz Bottle PO SCH ×3 (08:12→17:18)
[2023-02-27] MEDS ORDERED: POTASSIUM EFFERVESENT TAB 25 MEQ PO ONE (09:00)
[2023-02-27] MEDS: MORPHINE SULFATE INJ 2 MG/ml SYRG IV PRN (22:31)
[2023-02-28] VITALS (31 sets, daily range): BP systolic 89–123; BP diastolic 52–74; PULSE 80–108; RESP 17–37; TEMP 98–98.7; O2SAT 87–99
[2023-02-28] MEDS: ALBUTEROL MEDNEB 2.5 mg/3ml NEB NEB PRN ×4 (00:24→18:11)
[2023-02-28] MEDS: IPRATROPIUM BROM 0.5 MG/2.5ML INH SOL NEB PRN ×4 (00:24→18:11)
[2023-02-28] MEDS: ACETYLCYSTEINE 10 %(100MG/ML) SOL 4ML NEB SCH ×4 (00:24→18:11)
[2023-02-28] MEDS: AMPICILLIN & SULBACTAM SODIUM 3 GM in SODIUM CHL 0.9% 100 ML IV SCH ×4 (01:01→19:44)
[2023-02-28 06:23] LABS: Basophils # (auto) 0.1 10 ^3/uL (0-0.2); Eosinophils # (auto) 0.2 10 ^3/uL (0-0.8); Hemoglobin 9.2 g/dL (13.5-17.5)
[2023-02-28 06:26] LABS: Basophils % (auto) 0.5 % (0.0-2.0); Eosinophils % (auto) 2.1 % (0.0-7.0); Hematocrit 29.4 % (41.0-53.0); Lymphocytes # (auto) 2.4 10 ^3/uL (0.4-5.4); Mean Corpuscular Hemoglobin 23.5 pg (28.0-32.0); Mean Corpuscular Hgb Conc. 31.3 g/dL (32.0-36.0); Mean Corpuscular Volume 75.1 fL (80.0-100.0); Monocytes # (auto) 0.8 10 ^3/uL (0-1.3); Monocytes % (auto) 6.8 % (0.0-12.0); Neutrophils # (auto) 8.1 10 ^3/uL (1.6-8.6); Neutrophils % (auto) 69.6 % (37.0-80.0); Red Blood Cells 3.92 10^6/uL (4.5-5.90); White Blood Cell 11.6 10^3/uL (4.4-10.8)
[2023-02-28 06:28] LABS: Chloride 101 mmol/L (98-107); Potassium 3.4 mmol/L (3.5-5.1); Sodium 135 mmol/L (136-145)
[2023-02-28 06:29] LABS: Anion Gap 8 (5-15); Calcium 9.1 mg/dL (8.7-10.4); Carbon Dioxide 26 mmol/L (20-30)
[2023-02-28 06:34] LABS: BUN/Creatinine Ratio 24.5 (10.0-20.0); Blood Urea Nitrogen 12 mg/dL (9-23); Glucose 92 mg/dL (74-106)
[2023-02-28 07:07] LABS: Red Cell Distribution Width 20.7 % (11.8-14.3)
[2023-02-28] MEDS: DOCUSATE ORAL LIQUID 100 MG/10 ML UD GT SCH ×2 (10:00→22:00)
[2023-02-28] MEDS: levoFLOXacin 750MG 150 ML IV SCH (10:26)
[2023-02-28] MEDS: Ensure HIGH Protein Chocolate 8oz Bottle PO SCH ×3 (10:34→17:51)
[2023-02-28] MEDS: Juven Orange Powder PACKET 27.5gm PO SCH ×2 (10:34→17:51)
[2023-02-28] MEDS ORDERED: POTASSIUM CHL 20MEQ/100ML 100 ML IV ONE ×2 (14:06→14:30)
[2023-02-28] MEDS: MORPHINE SULFATE INJ 2 MG/ml SYRG IV PRN (22:37)
[2023-03-01] VITALS (31 sets, daily range): BP systolic 92–129; BP diastolic 53–89; PULSE 70–107; RESP 14–33; TEMP 97.6–99.9; O2SAT 90–100
[2023-03-01] MEDS: ALBUTEROL MEDNEB 2.5 mg/3ml NEB NEB PRN ×4 (00:05→18:10)
[2023-03-01] MEDS: IPRATROPIUM BROM 0.5 MG/2.5ML INH SOL NEB PRN ×4 (00:05→18:10)
[2023-03-01] MEDS: ACETYLCYSTEINE 10 %(100MG/ML) SOL 4ML NEB SCH ×4 (00:05→18:10)
[2023-03-01] MEDS: AMPICILLIN & SULBACTAM SODIUM 3 GM in SODIUM CHL 0.9% 100 ML IV SCH ×4 (03:05→20:35)
[2023-03-01] MEDS: Juven Orange Powder PACKET 27.5gm PO SCH ×2 (08:00→18:00)
[2023-03-01] MEDS: Ensure HIGH Protein Chocolate 8oz Bottle PO SCH ×3 (08:00→18:00)
[2023-03-01] MEDS: DOCUSATE ORAL LIQUID 100 MG/10 ML UD GT SCH ×2 (09:31→22:00)
[2023-03-01] MEDS: MORPHINE SULFATE INJ 2 MG/ml SYRG IV PRN (23:55)
[2023-03-02] VITALS (37 sets, daily range): BP systolic 89–123; BP diastolic 49–82; PULSE 81–112; RESP 20–34; TEMP 98.6–100.5; O2SAT 95–100
[2023-03-02] MEDS: ALBUTEROL MEDNEB 2.5 mg/3ml NEB NEB PRN ×5 (00:05→23:16)
[2023-03-02] MEDS: ACETYLCYSTEINE 10 %(100MG/ML) SOL 4ML NEB SCH ×5 (00:05→23:17)
[2023-03-02] MEDS: IPRATROPIUM BROM 0.5 MG/2.5ML INH SOL NEB PRN ×5 (00:05→23:16)
[2023-03-02] MEDS: AMPICILLIN & SULBACTAM SODIUM 3 GM in SODIUM CHL 0.9% 100 ML IV SCH ×4 (02:03→19:40)
[2023-03-02 05:38] LABS: Basophils # (auto) 0.1 10 ^3/uL (0-0.2); Eosinophils # (auto) 0.3 10 ^3/uL (0-0.8); Hemoglobin 9.6 g/dL (13.5-17.5); Lymphocytes # (auto) 2.6 10 ^3/uL (0.4-5.4)
[2023-03-02 05:41] LABS: Eosinophils % (auto) 2.6 % (0.0-7.0); Hematocrit 31.1 % (41.0-53.0); Lymphocytes % (auto) 20.9 % (10.0-50.0); Mean Corpuscular Hemoglobin 23.1 pg (28.0-32.0); Mean Corpuscular Hgb Conc. 30.7 g/dL (32.0-36.0); Mean Corpuscular Volume 75.1 fL (80.0-100.0); Monocytes % (auto) 8.3 % (0.0-12.0); Neutrophils # (auto) 8.3 10 ^3/uL (1.6-8.6); Neutrophils % (auto) 67.2 % (37.0-80.0); Nucleated Red Blood Cells % 0.1 %; Red Blood Cells 4.14 10^6/uL (4.5-5.90); White Blood Cell 12.3 10^3/uL (4.4-10.8)
[2023-03-02 05:42] LABS: Red Cell Distribution Width 20.4 % (11.8-14.3)
[2023-03-02 05:51] LABS: Alanine Aminotransferase 33 U/L (7-40); Albumin 3.5 g/dL (3.2-4.8); Alkaline Phosphatase 103 U/L (46-116); Anion Gap 8 (5-15); Aspartate Aminotransferase 20 U/L (13-40); BUN/Creatinine Ratio 21.4 (10.0-20.0); Blood Urea Nitrogen 9 mg/dL (9-23); Calcium 9.2 mg/dL (8.5-10.1); Carbon Dioxide 25 mmol/L (20-30); Chloride 103 mmol/L (98-107); Glucose 102 mg/dL (74-106); Potassium 3.4 mmol/L (3.5-5.1); Sodium 136 mmol/L (136-145)
[2023-03-02 05:52] LABS: Bilirubin, Total < 0.2 mg/dL (0.2-1.0); Total Protein 6.7 g/dL (5.7-8.2)
[2023-03-02] MEDS: Juven Orange Powder PACKET 27.5gm PO SCH ×2 (08:00→17:42)
[2023-03-02] MEDS: Ensure HIGH Protein Chocolate 8oz Bottle PO SCH ×3 (08:00→18:00)
[2023-03-02] MEDS: DOCUSATE ORAL LIQUID 100 MG/10 ML UD GT SCH ×2 (10:00→19:36)
[2023-03-02] MEDS: levoFLOXacin 500MG 100 ML IV SCH (10:26)
[2023-03-02] MEDS: POTASSIUM EFFERVESENT TAB 25 MEQ PO ONE ×2 (10:31→12:00)
[2023-03-02] MEDS ORDERED: MAGNESIUM OXIDE 400 MG TAB PO ONE (11:00)
[2023-03-02] MEDS ORDERED: POTASSIUM CHLORIDE 20 MEQ, LIDOCAINE 1% (LOCAL ANESTH.) 2 ML in SODIUM CHL 0.9% 100 ML IV ONE (12:15)
[2023-03-02] MEDS: diphenhdrAMINE HCL 50 MG/1 ML VL IV PRN (12:56)
[2023-03-02] MEDS ORDERED: MORPHINE SULFATE INJ 2 MG/ml SYRG ONE (21:46)
[2023-03-02] MEDS: MORPHINE SULFATE INJ 2 MG/ml SYRG IV PRN (21:53)
[2023-03-03] VITALS (37 sets, daily range): BP systolic 96–148; BP diastolic 58–96; PULSE 65–111; RESP 13–35; TEMP 97.7–99.8; O2SAT 97–100
[2023-03-03] MEDS: AMPICILLIN & SULBACTAM SODIUM 3 GM in SODIUM CHL 0.9% 100 ML IV SCH ×4 (02:54→20:39)
[2023-03-03 04:53] LABS: Basophils # (auto) 0.1 10 ^3/uL (0-0.2); Basophils % (auto) 0.6 % (0.0-2.0); Eosinophils # (auto) 0.3 10 ^3/uL (0-0.8); Eosinophils % (auto) 3.6 % (0.0-7.0); Hematocrit 29.7 % (41.0-53.0); Hemoglobin 9.5 g/dL (13.5-17.5); Lymphocytes # (auto) 2.7 10 ^3/uL (0.4-5.4); Lymphocytes % (auto) 29.3 % (10.0-50.0); Mean Corpuscular Hemoglobin 23.7 pg (28.0-32.0); Mean Corpuscular Hgb Conc. 31.8 g/dL (32.0-36.0); Mean Corpuscular Volume 74.5 fL (80.0-100.0); Monocytes # (auto) 0.7 10 ^3/uL (0-1.3); Monocytes % (auto) 7.8 % (0.0-12.0); Neutrophils # (auto) 5.3 10 ^3/uL (1.6-8.6); Neutrophils % (auto) 58.7 % (37.0-80.0); Red Blood Cells 3.99 10^6/uL (4.5-5.90); White Blood Cell 9.1 10^3/uL (4.4-10.8)
[2023-03-03 05:08] LABS: Alanine Aminotransferase 27 U/L (7-40); Albumin 3.4 g/dL (3.2-4.8); Alkaline Phosphatase 103 U/L (46-116); Anion Gap 5 (5-15); Aspartate Aminotransferase 13 U/L (13-40); BUN/Creatinine Ratio 29.3 (10.0-20.0); Blood Urea Nitrogen 12 mg/dL (9-23); Calcium 8.7 mg/dL (8.7-10.4); Carbon Dioxide 29 mmol/L (20-30); Chloride 105 mmol/L (98-107); Glucose 94 mg/dL (74-106); Magnesium 1.4 mg/dL (1.6-2.6); Potassium 3.4 mmol/L (3.5-5.1); Sodium 139 mmol/L (136-145)
[2023-03-03 05:09] LABS: Bilirubin, Total 0.2 mg/dL (0.2-1.0); Total Protein 6.6 g/dL (5.7-8.2)
[2023-03-03] MEDS: ACETYLCYSTEINE 10 %(100MG/ML) SOL 4ML NEB SCH ×4 (06:00→22:02)
[2023-03-03] MEDS: Ensure HIGH Protein Chocolate 8oz Bottle PO SCH ×3 (08:00→18:00)
[2023-03-03] MEDS: Juven Orange Powder PACKET 27.5gm PO SCH ×2 (08:00→18:00)
[2023-03-03] MEDS: MAGNESIUM SULFATE 1GM/100ML 100 ML IV SCH ×2 (08:45→09:31)
[2023-03-03] MEDS: POTASSIUM CHL 20MEQ/100ML 100 ML IV SCH ×2 (08:48→10:00)
[2023-03-03] MEDS: DOCUSATE ORAL LIQUID 100 MG/10 ML UD GT SCH ×2 (10:00→22:00)
[2023-03-03] MEDS: levoFLOXacin 500MG 100 ML IV SCH (10:47)
[2023-03-03] MEDS: ALBUTEROL MEDNEB 2.5 mg/3ml NEB NEB PRN ×3 (11:45→22:01)
[2023-03-03] MEDS: IPRATROPIUM BROM 0.5 MG/2.5ML INH SOL NEB PRN ×2 (18:37→22:01)
[2023-03-03] MEDS: MORPHINE SULFATE INJ 2 MG/ml SYRG IV PRN (20:39)
[2023-03-04] VITALS (38 sets, daily range): BP systolic 99–133; BP diastolic 47–84; PULSE 61–110; RESP 14–34; TEMP 97.9–99.7; O2SAT 92–100
[2023-03-04] MEDS: AMPICILLIN & SULBACTAM SODIUM 3 GM in SODIUM CHL 0.9% 100 ML IV SCH ×4 (02:00→20:35)
[2023-03-04] MEDS: ALBUTEROL MEDNEB 2.5 mg/3ml NEB NEB PRN ×2 (06:38→19:13)
[2023-03-04] MEDS: IPRATROPIUM BROM 0.5 MG/2.5ML INH SOL NEB PRN ×3 (06:39→19:13)
[2023-03-04] MEDS: ACETYLCYSTEINE 10 %(100MG/ML) SOL 4ML NEB SCH ×3 (06:39→19:13)
[2023-03-04 07:29] LABS: Alanine Aminotransferase 24 U/L (7-40); Alkaline Phosphatase 111 U/L (46-116); Anion Gap 5 (5-15); Calcium 8.9 mg/dL (8.7-10.4); Carbon Dioxide 29 mmol/L (20-30); Chloride 103 mmol/L (98-107); Glucose 88 mg/dL (74-106); Sodium 137 mmol/L (136-145)
[2023-03-04 07:30] LABS: Albumin 3.4 g/dL (3.2-4.8); BUN/Creatinine Ratio 22.5 (10.0-20.0); Blood Urea Nitrogen 9 mg/dL (9-23); Magnesium 1.6 mg/dL (1.6-2.6)
[2023-03-04 07:31] LABS: Aspartate Aminotransferase 15 U/L (13-40); Total Protein 6.5 g/dL (5.7-8.2)
[2023-03-04 07:32] LABS: Bilirubin, Total 0.2 mg/dL (0.2-1.0)
[2023-03-04 07:41] LABS: Basophils # (auto) 0.1 10 ^3/uL (0-0.2); Mean Corpuscular Hemoglobin 23.4 pg (28.0-32.0); Mean Corpuscular Hgb Conc. 31.2 g/dL (32.0-36.0); Monocytes # (auto) 0.7 10 ^3/uL (0-1.3); Neutrophils # (auto) 6.2 10 ^3/uL (1.6-8.6); White Blood Cell 9.6 10^3/uL (4.4-10.8)
[2023-03-04 07:43] LABS: Basophils % (auto) 0.5 % (0.0-2.0); Eosinophils # (auto) 0.4 10 ^3/uL (0-0.8); Eosinophils % (auto) 3.6 % (0.0-7.0); Lymphocytes # (auto) 2.2 10 ^3/uL (0.4-5.4); Lymphocytes % (auto) 23.3 % (10.0-50.0); Mean Corpuscular Volume 74.9 fL (80.0-100.0); Monocytes % (auto) 7.7 % (0.0-12.0); Neutrophils % (auto) 64.9 % (37.0-80.0); Red Blood Cells 4.27 10^6/uL (4.5-5.90); Red Cell Distribution Width 19.7 % (11.8-14.3)
[2023-03-04] MEDS: Ensure HIGH Protein Chocolate 8oz Bottle PO SCH ×3 (08:12→18:00)
[2023-03-04] MEDS ORDERED: MAGNESIUM SULFATE 1GM/100ML 100 ML IV ONE (08:45)
[2023-03-04] MEDS: DOCUSATE ORAL LIQUID 100 MG/10 ML UD GT SCH ×2 (09:45→22:00)
[2023-03-04] MEDS: MAGNESIUM SULFATE 1GM/100ML 100 ML IV SCH ×2 (10:07→11:48)
[2023-03-04] MEDS: Juven Orange Powder PACKET 27.5gm PO SCH ×2 (10:08→18:00)
[2023-03-04] MEDS ORDERED: ALBUTEROL SULF 2.5 MG/0.5ML(0.5%) NEB SOLN ONE (11:30)
[2023-03-04] MEDS: diphenhdrAMINE HCL 50 MG/1 ML VL IV PRN (17:05)
[2023-03-04] MEDS: MORPHINE SULFATE INJ 2 MG/ml SYRG IV PRN (20:35)
[2023-03-05] VITALS (36 sets, daily range): BP systolic 86–127; BP diastolic 50–84; PULSE 69–108; RESP 19–34; TEMP 97.6–101.4; O2SAT 95–100
[2023-03-05] MEDS: ACETAMINOPHEN 650 mg PER 20.3 mL UD PO PRN (00:08)
[2023-03-05] MEDS: IPRATROPIUM BROM 0.5 MG/2.5ML INH SOL NEB PRN ×6 (00:32→23:58)
[2023-03-05] MEDS: ACETYLCYSTEINE 10 %(100MG/ML) SOL 4ML NEB SCH ×5 (00:32→23:58)
[2023-03-05] MEDS: ALBUTEROL MEDNEB 2.5 mg/3ml NEB NEB PRN ×4 (00:34→12:49)
[2023-03-05] MEDS: AMPICILLIN & SULBACTAM SODIUM 3 GM in SODIUM CHL 0.9% 100 ML IV SCH ×4 (02:30→20:00)
[2023-03-05 06:03] LABS: Eosinophils # (auto) 0.4 10 ^3/uL (0-0.8); Lymphocytes # (auto) 2.3 10 ^3/uL (0.4-5.4); Mean Corpuscular Hemoglobin 23.4 pg (28.0-32.0); Monocytes # (auto) 0.8 10 ^3/uL (0-1.3); Neutrophils # (auto) 6.9 10 ^3/uL (1.6-8.6); Red Blood Cells 4.28 10^6/uL (4.5-5.90)
[2023-03-05 06:07] LABS: Basophils # (auto) 0 10 ^3/uL (0-0.2); Basophils % (auto) 0.4 % (0.0-2.0); Eosinophils % (auto) 3.8 % (0.0-7.0); Hematocrit 32.1 % (41.0-53.0); Lymphocytes % (auto) 21.6 % (10.0-50.0); Mean Corpuscular Hgb Conc. 31.2 g/dL (32.0-36.0); Mean Corpuscular Volume 75.1 fL (80.0-100.0); Neutrophils % (auto) 66.2 % (37.0-80.0); Nucleated Red Blood Cells % 0.1 %; White Blood Cell 10.4 10^3/uL (4.4-10.8)
[2023-03-05 06:29] LABS: Alanine Aminotransferase 23 U/L (7-40); Albumin 3.3 g/dL (3.2-4.8); Alkaline Phosphatase 112 U/L (46-116); Anion Gap 6 (5-15); Aspartate Aminotransferase 15 U/L (13-40); BUN/Creatinine Ratio 34.4 (10.0-20.0); Bilirubin, Total 0.2 mg/dL (0.2-1.0); Blood Urea Nitrogen 11 mg/dL (9-23); Calcium 8.6 mg/dL (8.7-10.4); Carbon Dioxide 28 mmol/L (20-30); Chloride 103 mmol/L (98-107); Glucose 94 mg/dL (74-106); Magnesium 1.7 mg/dL (1.6-2.6); Sodium 137 mmol/L (136-145); Total Protein 6.5 g/dL (5.7-8.2)
[2023-03-05 06:34] LABS: Red Cell Distribution Width 20.1 % (11.8-14.3)
[2023-03-05] MEDS ORDERED: ALBUTEROL SULF 2.5 MG/0.5ML(0.5%) NEB SOLN ONE ×2 (06:34→12:39)
[2023-03-05] MEDS: DOCUSATE ORAL LIQUID 100 MG/10 ML UD GT SCH ×2 (07:22→21:46)
[2023-03-05] MEDS: Ensure HIGH Protein Chocolate 8oz Bottle PO SCH ×3 (07:55→18:02)
[2023-03-05] MEDS: Juven Orange Powder PACKET 27.5gm PO SCH ×2 (07:55→18:01)
[2023-03-05] MEDS: MORPHINE SULFATE INJ 2 MG/ml SYRG IV PRN (21:46)
[2023-03-05] MEDS: ERGOCALCIFEROL 50,000 UNIT(1.25MG) CAP PO SCH (21:46)
[2023-03-05] MEDS: ALBUTEROL SULF 2.5 MG/0.5ML(0.5%) NEB SOLN NEB PRN (23:58)
[2023-03-06] VITALS (23 sets, daily range): BP systolic 96–153; BP diastolic 56–88; PULSE 66–105; RESP 12–31; TEMP 98.6–100.8; O2SAT 94–100
[2023-03-06] MEDS: AMPICILLIN & SULBACTAM SODIUM 3 GM in SODIUM CHL 0.9% 100 ML IV SCH ×4 (01:27→20:07)
[2023-03-06] MEDS: ACETAMINOPHEN 650 mg PER 20.3 mL UD PO PRN (01:27)
[2023-03-06 05:35] LABS: Eosinophils # (auto) 0.4 10 ^3/uL (0-0.8)
[2023-03-06 05:37] LABS: Basophils # (auto) 0 10 ^3/uL (0-0.2); Basophils % (auto) 0.4 % (0.0-2.0); Eosinophils % (auto) 3.8 % (0.0-7.0); Hematocrit 31.6 % (41.0-53.0); Hemoglobin 9.9 g/dL (13.5-17.5); Lymphocytes # (auto) 2.6 10 ^3/uL (0.4-5.4); Lymphocytes % (auto) 27.3 % (10.0-50.0); Mean Corpuscular Hemoglobin 23.6 pg (28.0-32.0); Mean Corpuscular Hgb Conc. 31.5 g/dL (32.0-36.0); Monocytes # (auto) 0.7 10 ^3/uL (0-1.3); Monocytes % (auto) 7.8 % (0.0-12.0); Neutrophils # (auto) 5.7 10 ^3/uL (1.6-8.6); Neutrophils % (auto) 60.7 % (37.0-80.0); Red Blood Cells 4.21 10^6/uL (4.5-5.90); White Blood Cell 9.4 10^3/uL (4.4-10.8)
[2023-03-06 05:57] LABS: Alanine Aminotransferase 21 U/L (7-40); Albumin 3.4 g/dL (3.2-4.8); Alkaline Phosphatase 102 U/L (46-116); Anion Gap 5 (5-15); Aspartate Aminotransferase 11 U/L (13-40); Blood Urea Nitrogen 10 mg/dL (9-23); Calcium 8.8 mg/dL (8.7-10.4); Carbon Dioxide 29 mmol/L (20-30); Chloride 103 mmol/L (98-107); Glucose 90 mg/dL (74-106); Magnesium 1.6 mg/dL (1.6-2.6); Sodium 137 mmol/L (136-145)
[2023-03-06 05:58] LABS: Bilirubin, Total 0.2 mg/dL (0.2-1.0); Total Protein 6.6 g/dL (5.7-8.2)
[2023-03-06] MEDS: ACETYLCYSTEINE 10 %(100MG/ML) SOL 4ML NEB SCH ×3 (06:50→18:27)
[2023-03-06] MEDS: ALBUTEROL SULF 2.5 MG/0.5ML(0.5%) NEB SOLN NEB PRN ×3 (06:50→18:27)
[2023-03-06] MEDS: Ensure HIGH Protein Chocolate 8oz Bottle PO SCH ×3 (08:00→17:27)
[2023-03-06] MEDS: diphenhdrAMINE HCL 50 MG/1 ML VL IV PRN (08:03)
[2023-03-06] MEDS: DOCUSATE ORAL LIQUID 100 MG/10 ML UD GT SCH ×2 (08:39→22:00)
[2023-03-06] MEDS: Juven Orange Powder PACKET 27.5gm PO SCH ×2 (08:39→17:27)
[2023-03-06] MEDS: IPRATROPIUM BROM 0.5 MG/2.5ML INH SOL NEB PRN (11:55)
[2023-03-06] MEDS: MORPHINE SULFATE INJ 2 MG/ml SYRG IV PRN (21:05)
[2023-03-07] VITALS (17 sets, daily range): BP systolic 101–117; BP diastolic 60–74; PULSE 71–111; RESP 14–29; TEMP 98.3–99.1; O2SAT 88–100
[2023-03-07] MEDS: ACETYLCYSTEINE 10 %(100MG/ML) SOL 4ML NEB SCH ×4 (00:05→19:04)
[2023-03-07] MEDS: ALBUTEROL SULF 2.5 MG/0.5ML(0.5%) NEB SOLN NEB PRN ×4 (00:05→19:03)
[2023-03-07] MEDS: IPRATROPIUM BROM 0.5 MG/2.5ML INH SOL NEB PRN ×3 (06:51→19:03)
[2023-03-07] MEDS: Juven Orange Powder PACKET 27.5gm PO SCH ×2 (08:00→18:00)
[2023-03-07] MEDS: Ensure HIGH Protein Chocolate 8oz Bottle PO SCH ×3 (08:00→18:00)
[2023-03-07] MEDS: DOCUSATE ORAL LIQUID 100 MG/10 ML UD GT SCH ×2 (10:00→22:00)
[2023-03-07 10:43] LABS: Eosinophils # (auto) 0.4 10 ^3/uL (0-0.8); Hemoglobin 10.6 g/dL (13.5-17.5); Monocytes # (auto) 0.4 10 ^3/uL (0-1.3); White Blood Cell 7.9 10^3/uL (4.4-10.8)
[2023-03-07 10:44] LABS: Basophils # (auto) 0 10 ^3/uL (0-0.2); Basophils % (auto) 0.6 % (0.0-2.0); Eosinophils % (auto) 4.7 % (0.0-7.0); Hematocrit 33.6 % (41.0-53.0); Lymphocytes # (auto) 1.8 10 ^3/uL (0.4-5.4); Lymphocytes % (auto) 23.3 % (10.0-50.0); Mean Corpuscular Hemoglobin 23.8 pg (28.0-32.0); Mean Corpuscular Hgb Conc. 31.7 g/dL (32.0-36.0); Monocytes % (auto) 5.5 % (0.0-12.0); Neutrophils # (auto) 5.2 10 ^3/uL (1.6-8.6); Neutrophils % (auto) 65.9 % (37.0-80.0); Red Blood Cells 4.48 10^6/uL (4.5-5.90)
[2023-03-07 10:47] LABS: Red Cell Distribution Width 20.1 % (11.8-14.3)
[2023-03-07 11:04] LABS: Chloride 104 mmol/L (98-107); Potassium 3.9 mmol/L (3.5-5.1); Sodium 141 mmol/L (136-145)
[2023-03-07 11:05] LABS: Anion Gap 8 (5-15); Calcium 9.7 mg/dL (8.5-10.1); Carbon Dioxide 29 mmol/L (20-30)
[2023-03-07 11:10] LABS: BUN/Creatinine Ratio 17.1 (10.0-20.0); Blood Urea Nitrogen 7 mg/dL (9-23); Glucose 96 mg/dL (74-106)
[2023-03-07 11:18] LABS: Anisocytosis Slight; Hypochromia Moderate
[2023-03-07 11:19] LABS: Platelet Estimate Adequate
[2023-03-07 11:39] LABS: Magnesium 1.6 mg/dL (1.6-2.6)
[2023-03-07] MEDS: diphenhdrAMINE HCL 50 MG/1 ML VL IV PRN (20:57)
[2023-03-07] MEDS: MORPHINE SULFATE INJ 2 MG/ml SYRG IV PRN (22:31)
[2023-03-08] VITALS (17 sets, daily range): BP systolic 98–136; BP diastolic 60–97; PULSE 69–104; RESP 14–92; TEMP 98.1–99; O2SAT 95–100
[2023-03-08] MEDS: IPRATROPIUM BROM 0.5 MG/2.5ML INH SOL NEB PRN ×4 (00:21→18:39)
[2023-03-08] MEDS: ACETYLCYSTEINE 10 %(100MG/ML) SOL 4ML NEB SCH ×4 (00:21→18:39)
[2023-03-08] MEDS: ALBUTEROL SULF 2.5 MG/0.5ML(0.5%) NEB SOLN NEB PRN ×4 (00:21→18:39)
[2023-03-08] MEDS: Juven Orange Powder PACKET 27.5gm PO SCH ×2 (08:00→18:00)
[2023-03-08] MEDS: Ensure HIGH Protein Chocolate 8oz Bottle PO SCH ×3 (08:00→18:00)
[2023-03-08] MEDS: DOCUSATE ORAL LIQUID 100 MG/10 ML UD GT SCH ×2 (10:00→22:00)
[2023-03-08] MEDS: diphenhdrAMINE HCL 50 MG/1 ML VL IV PRN (18:37)
[2023-03-09] VITALS (22 sets, daily range): BP systolic 96–118; BP diastolic 58–77; PULSE 77–102; RESP 15–30; TEMP 98.1–99.1; O2SAT 94–100
[2023-03-09] MEDS: ACETYLCYSTEINE 10 %(100MG/ML) SOL 4ML NEB SCH ×5 (00:10→23:59)
[2023-03-09] MEDS: IPRATROPIUM BROM 0.5 MG/2.5ML INH SOL NEB PRN ×5 (00:11→23:59)
[2023-03-09] MEDS: ALBUTEROL SULF 2.5 MG/0.5ML(0.5%) NEB SOLN NEB PRN ×5 (00:11→23:59)
[2023-03-09] MEDS: MORPHINE SULFATE INJ 2 MG/ml SYRG IV PRN ×2 (00:13→20:37)
[2023-03-09 05:51] LABS: Basophils # (auto) 0 10 ^3/uL (0-0.2); Basophils % (auto) 0.3 % (0.0-2.0); Eosinophils # (auto) 0.5 10 ^3/uL (0-0.8); Eosinophils % (auto) 4.6 % (0.0-7.0); Hemoglobin 9.9 g/dL (13.5-17.5); Neutrophils # (auto) 6.5 10 ^3/uL (1.6-8.6); Red Blood Cells 4.22 10^6/uL (4.5-5.90); White Blood Cell 10.6 10^3/uL (4.4-10.8)
[2023-03-09 05:53] LABS: Hematocrit 31.6 % (41.0-53.0); Lymphocytes # (auto) 2.8 10 ^3/uL (0.4-5.4); Lymphocytes % (auto) 26.1 % (10.0-50.0); Mean Corpuscular Hemoglobin 23.4 pg (28.0-32.0); Mean Corpuscular Hgb Conc. 31.3 g/dL (32.0-36.0); Mean Corpuscular Volume 74.9 fL (80.0-100.0); Monocytes # (auto) 0.8 10 ^3/uL (0-1.3); Nucleated Red Blood Cells % 0.1 %; Red Cell Distribution Width 19.8 % (11.8-14.3)
[2023-03-09 05:56] LABS: Chloride 102 mmol/L (98-107); Potassium 4.1 mmol/L (3.5-5.1)
[2023-03-09 05:57] LABS: Anion Gap 6 (5-15); Calcium 9.3 mg/dL (8.7-10.4); Carbon Dioxide 28 mmol/L (20-30)
[2023-03-09 06:02] LABS: Glucose 86 mg/dL (74-106)
[2023-03-09 06:03] LABS: BUN/Creatinine Ratio 22.5 (10.0-20.0); Blood Urea Nitrogen 9 mg/dL (9-23); Magnesium 1.8 mg/dL (1.6-2.6)
[2023-03-09 06:33] LABS: Sodium 136 mmol/L (136-145)
[2023-03-09] MEDS: Ensure HIGH Protein Chocolate 8oz Bottle PO SCH ×3 (08:00→17:42)
[2023-03-09] MEDS: Juven Orange Powder PACKET 27.5gm PO SCH ×2 (08:00→17:42)
[2023-03-09] MEDS: DOCUSATE ORAL LIQUID 100 MG/10 ML UD GT SCH ×2 (10:00→22:00)
[2023-03-10] VITALS (27 sets, daily range): BP systolic 94–124; BP diastolic 57–80; PULSE 73–121; RESP 17–35; TEMP 98.2–99.6; O2SAT 90–100
[2023-03-10 05:27] LABS: Chloride 100 mmol/L (98-107); Potassium 3.9 mmol/L (3.5-5.1); Sodium 136 mmol/L (136-145)
[2023-03-10 05:28] LABS: Anion Gap 7 (5-15); Calcium 9.5 mg/dL (8.7-10.4); Carbon Dioxide 29 mmol/L (20-30)
[2023-03-10 05:33] LABS: Glucose 95 mg/dL (74-106)
[2023-03-10 05:34] LABS: BUN/Creatinine Ratio 17.5 (10.0-20.0); Blood Urea Nitrogen 7 mg/dL (9-23)
[2023-03-10 05:39] LABS: Basophils # (auto) 0 10 ^3/uL (0-0.2); Eosinophils # (auto) 0.4 10 ^3/uL (0-0.8); Hematocrit 34.5 % (41.0-53.0); Monocytes # (auto) 0.7 10 ^3/uL (0-1.3); Nucleated Red Blood Cells % 0.1 %
[2023-03-10 05:42] LABS: Basophils % (auto) 0.5 % (0.0-2.0); Eosinophils % (auto) 4.5 % (0.0-7.0); Hemoglobin 10.8 g/dL (13.5-17.5); Lymphocytes # (auto) 2.5 10 ^3/uL (0.4-5.4); Lymphocytes % (auto) 28.8 % (10.0-50.0); Mean Corpuscular Hemoglobin 23.6 pg (28.0-32.0); Mean Corpuscular Hgb Conc. 31.4 g/dL (32.0-36.0); Mean Corpuscular Volume 75.3 fL (80.0-100.0); Monocytes % (auto) 7.8 % (0.0-12.0); Neutrophils # (auto) 5.1 10 ^3/uL (1.6-8.6); Neutrophils % (auto) 58.4 % (37.0-80.0); Red Blood Cells 4.58 10^6/uL (4.5-5.90); Red Cell Distribution Width 19.3 % (11.8-14.3); White Blood Cell 8.7 10^3/uL (4.4-10.8)
[2023-03-10] MEDS: ACETYLCYSTEINE 10 %(100MG/ML) SOL 4ML NEB SCH ×3 (07:42→18:49)
[2023-03-10] MEDS: IPRATROPIUM BROM 0.5 MG/2.5ML INH SOL NEB PRN ×2 (07:42→18:48)
[2023-03-10] MEDS: ALBUTEROL SULF 2.5 MG/0.5ML(0.5%) NEB SOLN NEB PRN ×2 (07:42→18:48)
[2023-03-10] MEDS: Juven Orange Powder PACKET 27.5gm PO SCH (08:00)
[2023-03-10] MEDS: Ensure HIGH Protein Chocolate 8oz Bottle PO SCH ×2 (09:15→12:00)
[2023-03-10] MEDS: DOCUSATE ORAL LIQUID 100 MG/10 ML UD GT SCH ×2 (10:00→22:00)
[2023-03-10] MEDS: MORPHINE SULFATE INJ 2 MG/ml SYRG IV PRN (21:19)
[2023-03-10] MEDS: ACETAMINOPHEN 650 mg PER 20.3 mL UD PO PRN (23:36)
[2023-03-11] VITALS (14 sets, daily range): BP systolic 86–122; BP diastolic 43–79; PULSE 81–103; RESP 13–25; TEMP 98.7–99.3; O2SAT 93–100
[2023-03-11] MEDS: ALBUTEROL SULF 2.5 MG/0.5ML(0.5%) NEB SOLN NEB PRN ×3 (00:08→11:16)
[2023-03-11] MEDS: ACETYLCYSTEINE 10 %(100MG/ML) SOL 4ML NEB SCH ×4 (00:09→13:10)
[2023-03-11] MEDS: MORPHINE SULFATE INJ 2 MG/ml SYRG IV PRN ×3 (02:27→23:53)
[2023-03-11] MEDS: IPRATROPIUM BROM 0.5 MG/2.5ML INH SOL NEB PRN ×2 (06:47→11:16)
[2023-03-11 06:50] LABS: Hemoglobin 10.5 g/dL (13.5-17.5); Monocytes # (auto) 0.8 10 ^3/uL (0-1.3); Neutrophils # (auto) 6.4 10 ^3/uL (1.6-8.6)
[2023-03-11 06:52] LABS: Chloride 100 mmol/L (98-107); Sodium 135 mmol/L (136-145)
[2023-03-11 06:53] LABS: Anion Gap 7 (5-15); Basophils # (auto) 0 10 ^3/uL (0-0.2); Basophils % (auto) 0.4 % (0.0-2.0); Carbon Dioxide 28 mmol/L (20-30); Eosinophils # (auto) 0.5 10 ^3/uL (0-0.8); Eosinophils % (auto) 4.5 % (0.0-7.0); Hematocrit 33.2 % (41.0-53.0); Lymphocytes # (auto) 2.4 10 ^3/uL (0.4-5.4); Mean Corpuscular Hemoglobin 23.7 pg (28.0-32.0); Mean Corpuscular Hgb Conc. 31.5 g/dL (32.0-36.0); Mean Corpuscular Volume 75.1 fL (80.0-100.0); Monocytes % (auto) 7.9 % (0.0-12.0); Neutrophils % (auto) 63.2 % (37.0-80.0); Red Blood Cells 4.42 10^6/uL (4.5-5.90); White Blood Cell 10.1 10^3/uL (4.4-10.8)
[2023-03-11 06:54] LABS: Calcium 9.2 mg/dL (8.7-10.4)
[2023-03-11 06:58] LABS: Blood Urea Nitrogen 12 mg/dL (9-23); Glucose 96 mg/dL (74-106)
[2023-03-11] MEDS: Juven Orange Powder PACKET 27.5gm PO SCH ×2 (08:00→18:00)
[2023-03-11] MEDS: Ensure HIGH Protein Chocolate 8oz Bottle PO SCH ×3 (09:19→18:00)
[2023-03-11] MEDS: DOCUSATE ORAL LIQUID 100 MG/10 ML UD GT SCH ×2 (10:00→21:46)
[2023-03-12] VITALS (21 sets, daily range): BP systolic 95–128; BP diastolic 55–87; PULSE 62–112; RESP 16–33; TEMP 97.6–99.2; O2SAT 91–100
[2023-03-12] MEDS: Juven Orange Powder PACKET 27.5gm PO SCH ×2 (07:50→18:55)
[2023-03-12] MEDS: Ensure HIGH Protein Chocolate 8oz Bottle PO SCH ×3 (07:50→18:55)
[2023-03-12 09:24] LABS: Base Excess 3.3 mmol/L (-2.0-2.0)
[2023-03-12] MEDS: DOCUSATE ORAL LIQUID 100 MG/10 ML UD GT SCH ×2 (10:00→22:00)
[2023-03-12] MEDS: ALBUTEROL SULF 2.5 MG/0.5ML(0.5%) NEB SOLN NEB PRN ×2 (13:10→18:50)
[2023-03-12] MEDS: IPRATROPIUM BROM 0.5 MG/2.5ML INH SOL NEB PRN ×2 (13:10→18:50)
[2023-03-12] MEDS: MORPHINE SULFATE INJ 2 MG/ml SYRG IV PRN ×2 (16:06→20:42)
[2023-03-12] MEDS: ACETYLCYSTEINE 10 %(100MG/ML) SOL 4ML NEB SCH (18:50)
[2023-03-12] MEDS: ERGOCALCIFEROL 50,000 UNIT(1.25MG) CAP PO SCH (22:00)
[2023-03-13] VITALS (32 sets, daily range): BP systolic 100–128; BP diastolic 57–76; PULSE 71–105; RESP 14–33; TEMP 97.8–100; O2SAT 93–100
[2023-03-13] MEDS: ALBUTEROL SULF 2.5 MG/0.5ML(0.5%) NEB SOLN NEB PRN ×4 (00:06→23:44)
[2023-03-13] MEDS: ACETYLCYSTEINE 10 %(100MG/ML) SOL 4ML NEB SCH ×5 (00:06→23:44)
[2023-03-13] MEDS: IPRATROPIUM BROM 0.5 MG/2.5ML INH SOL NEB PRN ×2 (00:06→18:31)
[2023-03-13] MEDS: MORPHINE SULFATE INJ 2 MG/ml SYRG IV PRN ×4 (02:36→20:10)
[2023-03-13 05:35] LABS: Calcium 9.2 mg/dL (8.7-10.4); Chloride 99 mmol/L (98-107); Eosinophils # (auto) 0.3 10 ^3/uL (0-0.8); Mean Corpuscular Hemoglobin 24.2 pg (28.0-32.0); Monocytes # (auto) 0.7 10 ^3/uL (0-1.3); Potassium 3.6 mmol/L (3.5-5.1); Sodium 134 mmol/L (136-145); White Blood Cell 8.8 10^3/uL (4.4-10.8)
[2023-03-13 05:36] LABS: Anion Gap 7 (5-15); Carbon Dioxide 28 mmol/L (20-30)
[2023-03-13 05:38] LABS: Basophils # (auto) 0.1 10 ^3/uL (0-0.2); Basophils % (auto) 0.6 % (0.0-2.0); Eosinophils % (auto) 3.7 % (0.0-7.0); Hematocrit 33.7 % (41.0-53.0); Hemoglobin 10.8 g/dL (13.5-17.5); Lymphocytes % (auto) 22.3 % (10.0-50.0); Mean Corpuscular Hgb Conc. 32.1 g/dL (32.0-36.0); Mean Corpuscular Volume 75.3 fL (80.0-100.0); Neutrophils # (auto) 5.8 10 ^3/uL (1.6-8.6); Neutrophils % (auto) 65.4 % (37.0-80.0); Nucleated Red Blood Cells % 0.1 %; Red Blood Cells 4.47 10^6/uL (4.5-5.90)
[2023-03-13 05:41] LABS: BUN/Creatinine Ratio 22.2 (10.0-20.0); Blood Urea Nitrogen 8 mg/dL (9-23); Glucose 113 mg/dL (74-106)
[2023-03-13] MEDS: Juven Orange Powder PACKET 27.5gm PO SCH ×2 (09:46→18:00)
[2023-03-13] MEDS: Ensure HIGH Protein Chocolate 8oz Bottle PO SCH ×3 (09:53→18:00)
[2023-03-13] MEDS: DOCUSATE ORAL LIQUID 100 MG/10 ML UD GT SCH ×2 (09:53→22:00)
[2023-03-13] MEDS ORDERED: LORazepam 2MG/ML-1ML VIAL IV PRN (12:30)
[2023-03-13] MEDS: diphenhdrAMINE HCL 50 MG/1 ML VL IV PRN (15:44)
[2023-03-13] MEDS: HYDROcodone-ACET 5/325MG TAB PO PRN (22:39)
[2023-03-14] VITALS (25 sets, daily range): BP systolic 109–151; BP diastolic 58–89; PULSE 6–107; RESP 13–29; TEMP 98.3–99.3; O2SAT 96–100
[2023-03-14] MEDS: MORPHINE SULFATE INJ 2 MG/ml SYRG IV PRN ×4 (02:45→22:01)
[2023-03-14 05:38] LABS: Chloride 101 mmol/L (98-107); Potassium 3.7 mmol/L (3.5-5.1); Sodium 135 mmol/L (136-145)
[2023-03-14 05:39] LABS: Anion Gap 6 (5-15); Calcium 9.1 mg/dL (8.7-10.4); Carbon Dioxide 28 mmol/L (20-30)
[2023-03-14 05:44] LABS: BUN/Creatinine Ratio 27.5 (10.0-20.0); Blood Urea Nitrogen 11 mg/dL (9-23); Glucose 96 mg/dL (74-106)
[2023-03-14 05:47] LABS: Basophils # (auto) 0 10 ^3/uL (0-0.2); Eosinophils # (auto) 0.4 10 ^3/uL (0-0.8); Hemoglobin 9.9 g/dL (13.5-17.5); Mean Corpuscular Hemoglobin 23.5 pg (28.0-32.0); Monocytes # (auto) 0.7 10 ^3/uL (0-1.3); Monocytes % (auto) 7.3 % (0.0-12.0); Neutrophils # (auto) 5.4 10 ^3/uL (1.6-8.6); Red Cell Distribution Width 18.7 % (11.8-14.3)
[2023-03-14 05:53] LABS: Basophils % (auto) 0.5 % (0.0-2.0); Eosinophils % (auto) 4.7 % (0.0-7.0); Hematocrit 31.3 % (41.0-53.0); Lymphocytes # (auto) 2.5 10 ^3/uL (0.4-5.4); Lymphocytes % (auto) 27.8 % (10.0-50.0); Mean Corpuscular Hgb Conc. 31.5 g/dL (32.0-36.0); Mean Corpuscular Volume 74.7 fL (80.0-100.0); Neutrophils % (auto) 59.7 % (37.0-80.0); Nucleated Red Blood Cells % 0.1 %; Red Blood Cells 4.19 10^6/uL (4.5-5.90); White Blood Cell 9.1 10^3/uL (4.4-10.8)
[2023-03-14] MEDS: ACETYLCYSTEINE 10 %(100MG/ML) SOL 4ML NEB SCH ×2 (06:39→12:55)
[2023-03-14] MEDS: Ensure HIGH Protein Chocolate 8oz Bottle PO SCH ×3 (08:00→18:24)
[2023-03-14] MEDS: Juven Orange Powder PACKET 27.5gm PO SCH ×2 (08:00→18:24)
[2023-03-14] MEDS: DOCUSATE ORAL LIQUID 100 MG/10 ML UD GT SCH ×2 (11:47→22:00)
[2023-03-15] VITALS (41 sets, daily range): BP systolic 106–172; BP diastolic 58–98; PULSE 62–115; RESP 17–29; TEMP 98–99.5; O2SAT 92–100
[2023-03-15] MEDS: diphenhdrAMINE HCL 50 MG/1 ML VL IV PRN ×2 (00:01→16:54)
[2023-03-15 05:28] LABS: Chloride 102 mmol/L (98-107)
[2023-03-15 05:29] LABS: Potassium 3.9 mmol/L (3.5-5.1); Sodium 136 mmol/L (136-145)
[2023-03-15 05:30] LABS: Anion Gap 6 (5-15); Calcium 9.2 mg/dL (8.7-10.4); Carbon Dioxide 28 mmol/L (20-30)
[2023-03-15 05:35] LABS: BUN/Creatinine Ratio 31.6 (10.0-20.0); Blood Urea Nitrogen 12 mg/dL (9-23); Glucose 101 mg/dL (74-106)
[2023-03-15 05:49] LABS: Basophils # (auto) 0 10 ^3/uL (0-0.2); Basophils % (auto) 0.5 % (0.0-2.0); Eosinophils # (auto) 0.3 10 ^3/uL (0-0.8); Mean Corpuscular Volume 74.9 fL (80.0-100.0); Monocytes # (auto) 0.7 10 ^3/uL (0-1.3)
[2023-03-15 05:52] LABS: Eosinophils % (auto) 3.1 % (0.0-7.0); Hematocrit 33.4 % (41.0-53.0); Hemoglobin 10.6 g/dL (13.5-17.5); Lymphocytes % (auto) 19.8 % (10.0-50.0); Mean Corpuscular Hemoglobin 23.7 pg (28.0-32.0); Mean Corpuscular Hgb Conc. 31.6 g/dL (32.0-36.0); Monocytes % (auto) 6.9 % (0.0-12.0); Neutrophils # (auto) 6.9 10 ^3/uL (1.6-8.6); Neutrophils % (auto) 69.7 % (37.0-80.0); Red Blood Cells 4.45 10^6/uL (4.5-5.90); Red Cell Distribution Width 18.7 % (11.8-14.3); White Blood Cell 9.9 10^3/uL (4.4-10.8)
[2023-03-15] MEDS: Juven Orange Powder PACKET 27.5gm PO SCH ×2 (08:00→18:05)
[2023-03-15] MEDS: Ensure HIGH Protein Chocolate 8oz Bottle PO SCH ×3 (08:00→18:05)
[2023-03-15] MEDS ORDERED: POVIDONE IODINE 10 % TOPICAL OINT 30GM TOP SCH (10:00)
[2023-03-15] MEDS: MORPHINE SULFATE INJ 2 MG/ml SYRG IV PRN ×2 (15:24→21:21)
[2023-03-16] VITALS (23 sets, daily range): BP systolic 106–157; BP diastolic 56–90; PULSE 70–119; RESP 14–26; TEMP 98.7–100.3; O2SAT 95–100
[2023-03-16] MEDS: diphenhdrAMINE HCL 50 MG/1 ML VL IV PRN ×3 (01:55→21:33)
[2023-03-16] MEDS: MORPHINE SULFATE INJ 2 MG/ml SYRG IV PRN ×4 (03:37→19:01)
[2023-03-16] MEDS: HYDROcodone-ACET 5/325MG TAB PO PRN ×3 (05:36→21:33)
[2023-03-16 06:28] LABS: Basophils # (auto) 0 10 ^3/uL (0-0.2); Basophils % (auto) 0.4 % (0.0-2.0); Chloride 100 mmol/L (98-107); Eosinophils # (auto) 0.2 10 ^3/uL (0-0.8); Eosinophils % (auto) 2.2 % (0.0-7.0); Hemoglobin 10.7 g/dL (13.5-17.5); Monocytes # (auto) 0.9 10 ^3/uL (0-1.3); Neutrophils # (auto) 6.9 10 ^3/uL (1.6-8.6); Sodium 135 mmol/L (136-145); White Blood Cell 10.1 10^3/uL (4.4-10.8)
[2023-03-16 06:29] LABS: Anion Gap 8 (5-15); Carbon Dioxide 27 mmol/L (20-30)
[2023-03-16 06:30] LABS: Calcium 9.8 mg/dL (8.5-10.1); Hematocrit 33.8 % (41.0-53.0); Lymphocytes # (auto) 1.9 10 ^3/uL (0.4-5.4); Lymphocytes % (auto) 19.2 % (10.0-50.0); Mean Corpuscular Hemoglobin 23.6 pg (28.0-32.0); Mean Corpuscular Hgb Conc. 31.6 g/dL (32.0-36.0); Mean Corpuscular Volume 74.6 fL (80.0-100.0); Monocytes % (auto) 9.2 % (0.0-12.0); Red Blood Cells 4.53 10^6/uL (4.5-5.90); Red Cell Distribution Width 18.9 % (11.8-14.3)
[2023-03-16 06:34] LABS: BUN/Creatinine Ratio 26.3 (10.0-20.0); Blood Urea Nitrogen 10 mg/dL (9-23); Glucose 97 mg/dL (74-106)
[2023-03-16] MEDS: Juven Orange Powder PACKET 27.5gm PO SCH ×2 (08:14→18:00)
[2023-03-16] MEDS: Ensure HIGH Protein Chocolate 8oz Bottle PO SCH ×3 (08:14→18:00)
[2023-03-16] MEDS: ACETAMINOPHEN 650 mg PER 20.3 mL UD PO PRN (17:19)
[2023-03-17] VITALS (31 sets, daily range): BP systolic 99–159; BP diastolic 59–89; PULSE 76–112; RESP 15–29; TEMP 98.6–99.9; O2SAT 93–100
[2023-03-17] MEDS: MORPHINE SULFATE INJ 2 MG/ml SYRG IV PRN ×5 (04:17→23:10)
[2023-03-17] MEDS: diphenhdrAMINE HCL 50 MG/1 ML VL IV PRN ×2 (07:43→17:11)
[2023-03-17] MEDS: Juven Orange Powder PACKET 27.5gm PO SCH ×2 (08:00→18:54)
[2023-03-17] MEDS: Ensure HIGH Protein Chocolate 8oz Bottle PO SCH ×3 (08:00→18:54)
[2023-03-17] MEDS: HYDROcodone-ACET 5/325MG TAB PO PRN ×2 (12:56→20:45)
[2023-03-18] VITALS (29 sets, daily range): BP systolic 105–143; BP diastolic 64–87; PULSE 80–113; RESP 18–37; TEMP 98.3–102; O2SAT 92–100
[2023-03-18] MEDS: diphenhdrAMINE HCL 50 MG/1 ML VL IV PRN ×3 (01:12→22:45)
[2023-03-18] MEDS: Juven Orange Powder PACKET 27.5gm PO SCH ×2 (08:07→18:00)
[2023-03-18] MEDS: Ensure HIGH Protein Chocolate 8oz Bottle PO SCH ×3 (08:07→18:00)
[2023-03-18] MEDS: MORPHINE SULFATE INJ 2 MG/ml SYRG IV PRN ×3 (09:09→19:29)
[2023-03-18 14:30] LABS: Urine Bacteria FEW /hpf (None Seen); Urine Blood Negative /uL (Negative); Urine Clarity HAZY (Clear); Urine Color Yellow (Yellow); Urine Mucus FEW (None Seen); Urine Protein, UAD TRACE (Negative); Urine Specific Gravity 1.017 (1.001-1.035); Urine Urobilinogen Normal (Negative); Urine WBC 4 /hpf (0 - 3); Urine pH 6.5 (5.0-8.0)
[2023-03-18 15:33] LABS: Chloride 102 mmol/L (98-107); Potassium 3.7 mmol/L (3.5-5.1); Sodium 134 mmol/L (136-145)
[2023-03-18 15:34] LABS: Anion Gap 5 (5-15); Calcium 9.5 mg/dL (8.7-10.4); Carbon Dioxide 27 mmol/L (20-30)
[2023-03-18 15:37] LABS: Basophils % (auto) 0.4 % (0.0-2.0); Eosinophils # (auto) 0.2 10 ^3/uL (0-0.8); Hemoglobin 10.8 g/dL (13.5-17.5); Lymphocytes # (auto) 1.6 10 ^3/uL (0.4-5.4)
[2023-03-18 15:39] LABS: Glucose 93 mg/dL (74-106)
[2023-03-18 15:40] LABS: Basophils # (auto) 0 10 ^3/uL (0-0.2); Eosinophils % (auto) 1.9 % (0.0-7.0); Lymphocytes % (auto) 13.6 % (10.0-50.0); Mean Corpuscular Hemoglobin 23.3 pg (28.0-32.0); Mean Corpuscular Hgb Conc. 30.9 g/dL (32.0-36.0); Mean Corpuscular Volume 75.5 fL (80.0-100.0); Monocytes % (auto) 8.2 % (0.0-12.0); Neutrophils % (auto) 75.9 % (37.0-80.0); Red Blood Cells 4.64 10^6/uL (4.5-5.90); Red Cell Distribution Width 18.7 % (11.8-14.3); White Blood Cell 11.9 10^3/uL (4.4-10.8)
[2023-03-18 15:45] LABS: BUN/Creatinine Ratio 16.7 (10.0-20.0); Blood Urea Nitrogen < 5 mg/dL (9-23)
[2023-03-18] MEDS ORDERED: ACETYLCYSTEINE 10 %(100MG/ML) SOL 4ML NEB SCH (18:00)
[2023-03-18] MEDS: ALBUTEROL SULF 2.5 MG/0.5ML(0.5%) NEB SOLN NEB SCH (19:11)
[2023-03-18] MEDS: IPRATROPIUM BROM 0.5 MG/2.5ML INH SOL NEB SCH (19:11)
[2023-03-19] VITALS (26 sets, daily range): BP systolic 96–160; BP diastolic 52–92; PULSE 72–117; RESP 13–40; TEMP 98.4–99.2; O2SAT 92–100
[2023-03-19] MEDS: MORPHINE SULFATE INJ 2 MG/ml SYRG IV PRN ×5 (00:07→21:44)
[2023-03-19] MEDS: ACETAMINOPHEN 325 MG TAB PO PRN (00:38)
[2023-03-19 05:05] LABS: Basophils # (auto) 0.1 10 ^3/uL (0-0.2); Basophils % (auto) 0.5 % (0.0-2.0); Eosinophils # (auto) 0.1 10 ^3/uL (0-0.8); Eosinophils % (auto) 0.9 % (0.0-7.0); Hematocrit 33.8 % (41.0-53.0); Hemoglobin 10.4 g/dL (13.5-17.5); Lymphocytes # (auto) 2.3 10 ^3/uL (0.4-5.4); Lymphocytes % (auto) 19.2 % (10.0-50.0); Mean Corpuscular Hemoglobin 22.8 pg (28.0-32.0); Mean Corpuscular Hgb Conc. 30.8 g/dL (32.0-36.0); Mean Corpuscular Volume 74.1 fL (80.0-100.0); Monocytes # (auto) 0.9 10 ^3/uL (0-1.3); Monocytes % (auto) 7.6 % (0.0-12.0); Neutrophils # (auto) 8.7 10 ^3/uL (1.6-8.6); Neutrophils % (auto) 71.8 % (37.0-80.0); Red Blood Cells 4.56 10^6/uL (4.5-5.90); Red Cell Distribution Width 18.5 % (11.8-14.3)
[2023-03-19 05:11] LABS: Chloride 99 mmol/L (98-107); Potassium 3.6 mmol/L (3.5-5.1); Sodium 132 mmol/L (136-145)
[2023-03-19 05:12] LABS: Anion Gap 6 (5-15); Calcium 8.9 mg/dL (8.7-10.4); Carbon Dioxide 27 mmol/L (20-30)
[2023-03-19 05:17] LABS: BUN/Creatinine Ratio 23.5 (10.0-20.0); Blood Urea Nitrogen 8 mg/dL (9-23); Glucose 103 mg/dL (74-106)
[2023-03-19] MEDS: ACETYLCYSTEINE 10 %(100MG/ML) SOL 4ML NEB SCH ×3 (07:16→18:16)
[2023-03-19] MEDS: ALBUTEROL SULF 2.5 MG/0.5ML(0.5%) NEB SOLN NEB SCH ×3 (07:16→18:14)
[2023-03-19] MEDS: IPRATROPIUM BROM 0.5 MG/2.5ML INH SOL NEB SCH ×3 (07:16→18:14)
[2023-03-19] MEDS: Juven Orange Powder PACKET 27.5gm PO SCH ×2 (08:00→18:00)
[2023-03-19] MEDS: Ensure HIGH Protein Chocolate 8oz Bottle PO SCH ×3 (08:00→18:00)
[2023-03-19] MEDS: diphenhdrAMINE HCL 50 MG/1 ML VL IV PRN ×3 (10:42→21:44)
[2023-03-19] MEDS: HYDROcodone-ACET 5/325MG TAB PO PRN (12:23)
[2023-03-19] MEDS: CEFEPIME 2GM/50ML NS 50 ML IV SCH ×2 (14:07→22:25)
[2023-03-19] MEDS: LINEZOLID 600MG/300ML 300 ML IV SCH (22:24)
[2023-03-20] VITALS (27 sets, daily range): BP systolic 111–145; BP diastolic 61–86; PULSE 68–111; RESP 18–28; TEMP 98.2–101.2; O2SAT 94–100
[2023-03-20] MEDS: ACETAMINOPHEN 325 MG TAB PO PRN (00:05)
[2023-03-20] MEDS: HYDROcodone-ACET 5/325MG TAB PO PRN (00:09)
[2023-03-20] MEDS: IPRATROPIUM BROM 0.5 MG/2.5ML INH SOL NEB SCH ×3 (06:00→19:16)
[2023-03-20] MEDS: ACETYLCYSTEINE 10 %(100MG/ML) SOL 4ML NEB SCH ×3 (06:00→19:16)
[2023-03-20] MEDS: ALBUTEROL SULF 2.5 MG/0.5ML(0.5%) NEB SOLN NEB SCH ×3 (06:00→19:15)
[2023-03-20] MEDS: CEFEPIME 2GM/50ML NS 50 ML IV SCH ×3 (06:11→22:00)
[2023-03-20 06:23] LABS: Basophils # (auto) 0.1 10 ^3/uL (0-0.2); Basophils % (auto) 0.5 % (0.0-2.0); Eosinophils # (auto) 0.3 10 ^3/uL (0-0.8); Eosinophils % (auto) 2.2 % (0.0-7.0); Hematocrit 33.8 % (41.0-53.0); Hemoglobin 10.5 g/dL (13.5-17.5); Lymphocytes # (auto) 2.1 10 ^3/uL (0.4-5.4); Lymphocytes % (auto) 16.7 % (10.0-50.0); Mean Corpuscular Hemoglobin 23.2 pg (28.0-32.0); Mean Corpuscular Hgb Conc. 30.9 g/dL (32.0-36.0); Mean Corpuscular Volume 75.1 fL (80.0-100.0); Monocytes % (auto) 8.1 % (0.0-12.0); Neutrophils # (auto) 9.1 10 ^3/uL (1.6-8.6); Neutrophils % (auto) 72.5 % (37.0-80.0); Red Blood Cells 4.51 10^6/uL (4.5-5.90); Red Cell Distribution Width 18.6 % (11.8-14.3); White Blood Cell 12.5 10^3/uL (4.4-10.8)
[2023-03-20 06:37] LABS: Chloride 100 mmol/L (98-107); Potassium 3.6 mmol/L (3.5-5.1); Sodium 134 mmol/L (136-145)
[2023-03-20 06:38] LABS: Anion Gap 9 (5-15); Calcium 9.2 mg/dL (8.5-10.1); Carbon Dioxide 25 mmol/L (20-30)
[2023-03-20 06:43] LABS: BUN/Creatinine Ratio 18.4 (10.0-20.0); Blood Urea Nitrogen 7 mg/dL (9-23); Glucose 110 mg/dL (74-106)
[2023-03-20] MEDS: Ensure HIGH Protein Chocolate 8oz Bottle PO SCH ×3 (08:00→18:00)
[2023-03-20] MEDS: Juven Orange Powder PACKET 27.5gm PO SCH ×2 (08:00→18:00)
[2023-03-20] MEDS: LINEZOLID 600MG/300ML 300 ML IV SCH ×2 (10:57→22:41)
[2023-03-20 12:57] LABS: Rapid Influenza A Negative (Negative); Rapid Influenza B Negative (Negative)
[2023-03-20] MEDS: MORPHINE SULFATE INJ 2 MG/ml SYRG IV PRN ×2 (17:34→23:05)
[2023-03-20] MEDS: diphenhdrAMINE HCL 50 MG/1 ML VL IV PRN (17:57)
[2023-03-21] VITALS (21 sets, daily range): BP systolic 117–147; BP diastolic 65–91; PULSE 62–98; RESP 16–29; TEMP 98.3–99.1; O2SAT 96–100
[2023-03-21] MEDS: CEFEPIME 2GM/50ML NS 50 ML IV SCH ×3 (06:00→22:00)
[2023-03-21] MEDS: IPRATROPIUM BROM 0.5 MG/2.5ML INH SOL NEB SCH ×3 (07:18→19:27)
[2023-03-21] MEDS: ACETYLCYSTEINE 10 %(100MG/ML) SOL 4ML NEB SCH ×3 (07:18→19:27)
[2023-03-21] MEDS: ALBUTEROL SULF 2.5 MG/0.5ML(0.5%) NEB SOLN NEB SCH ×3 (07:18→19:27)
[2023-03-21] MEDS: diphenhdrAMINE HCL 50 MG/1 ML VL IV PRN ×2 (10:00→20:17)
[2023-03-21] MEDS: LINEZOLID 600MG/300ML 300 ML IV SCH ×2 (10:01→22:26)
[2023-03-21] MEDS: Ensure HIGH Protein Chocolate 8oz Bottle PO SCH ×3 (10:08→18:23)
[2023-03-21] MEDS: Juven Orange Powder PACKET 27.5gm PO SCH ×2 (10:08→18:23)
[2023-03-21 11:40] LABS: Basophils # (auto) 0.1 10 ^3/uL (0-0.2); Eosinophils # (auto) 0.2 10 ^3/uL (0-0.8)
[2023-03-21 11:41] LABS: Basophils % (auto) 0.5 % (0.0-2.0); Eosinophils % (auto) 2.3 % (0.0-7.0); Hematocrit 35.6 % (41.0-53.0); Hemoglobin 11.3 g/dL (13.5-17.5); Lymphocytes # (auto) 1.7 10 ^3/uL (0.4-5.4); Lymphocytes % (auto) 17.2 % (10.0-50.0); Mean Corpuscular Hemoglobin 23.8 pg (28.0-32.0); Mean Corpuscular Hgb Conc. 31.7 g/dL (32.0-36.0); Mean Corpuscular Volume 75.1 fL (80.0-100.0); Monocytes # (auto) 0.5 10 ^3/uL (0-1.3); Monocytes % (auto) 5.5 % (0.0-12.0); Neutrophils # (auto) 7.4 10 ^3/uL (1.6-8.6); Neutrophils % (auto) 74.5 % (37.0-80.0); Red Blood Cells 4.74 10^6/uL (4.5-5.90); Red Cell Distribution Width 18.2 % (11.8-14.3); White Blood Cell 9.9 10^3/uL (4.4-10.8)
[2023-03-21 12:05] LABS: Alanine Aminotransferase 41 U/L (7-40); Albumin 3.8 g/dL (3.2-4.8); Alkaline Phosphatase 91 U/L (46-116); Anion Gap 11 (5-15); Aspartate Aminotransferase 26 U/L (13-40); Bilirubin, Total 0.6 mg/dL (0.2-1.0); Blood Urea Nitrogen 6 mg/dL (9-23); Calcium 9.7 mg/dL (8.5-10.1); Carbon Dioxide 23 mmol/L (20-30); Chloride 101 mmol/L (98-107); Glucose 118 mg/dL (74-106); Potassium 3.5 mmol/L (3.5-5.1); Sodium 135 mmol/L (136-145); Total Protein 7.6 g/dL (5.7-8.2)
[2023-03-21] MEDS: MORPHINE SULFATE INJ 2 MG/ml SYRG IV PRN (20:18)
[2023-03-22] VITALS (24 sets, daily range): BP systolic 111–145; BP diastolic 61–87; PULSE 8–103; RESP 18–28; TEMP 98.2–98.9; O2SAT 96–100
[2023-03-22] MEDS: HYDROcodone-ACET 5/325MG TAB PO PRN ×2 (00:28→18:52)
[2023-03-22] MEDS: MORPHINE SULFATE INJ 2 MG/ml SYRG IV PRN ×4 (04:08→21:14)
[2023-03-22] MEDS: diphenhdrAMINE HCL 50 MG/1 ML VL IV PRN ×3 (04:33→21:14)
[2023-03-22] MEDS: CEFEPIME 2GM/50ML NS 50 ML IV SCH ×3 (06:00→21:15)
[2023-03-22] MEDS: IPRATROPIUM BROM 0.5 MG/2.5ML INH SOL NEB SCH ×3 (06:12→18:49)
[2023-03-22] MEDS: ALBUTEROL SULF 2.5 MG/0.5ML(0.5%) NEB SOLN NEB SCH ×3 (06:12→18:49)
[2023-03-22] MEDS: ACETYLCYSTEINE 10 %(100MG/ML) SOL 4ML NEB SCH ×3 (06:13→18:50)
[2023-03-22] MEDS: Ensure HIGH Protein Chocolate 8oz Bottle PO SCH ×3 (08:00→18:00)
[2023-03-22] MEDS: Juven Orange Powder PACKET 27.5gm PO SCH ×2 (08:00→18:00)
[2023-03-22] MEDS: LINEZOLID 600MG/300ML 300 ML IV SCH (09:51)
[2023-03-23] VITALS (28 sets, daily range): BP systolic 99–137; BP diastolic 54–83; PULSE 21–105; RESP 14–28; TEMP 98–98.6; O2SAT 96–100
[2023-03-23] MEDS: LINEZOLID 600MG/300ML 300 ML IV SCH ×3 (01:43→22:09)
[2023-03-23] MEDS: MORPHINE SULFATE INJ 2 MG/ml SYRG IV PRN ×4 (04:12→22:09)
[2023-03-23] MEDS: diphenhdrAMINE HCL 50 MG/1 ML VL IV PRN ×3 (05:22→22:09)
[2023-03-23] MEDS: CEFEPIME 2GM/50ML NS 50 ML IV SCH ×3 (05:23→22:09)
[2023-03-23] MEDS: IPRATROPIUM BROM 0.5 MG/2.5ML INH SOL NEB SCH ×3 (06:40→18:16)
[2023-03-23] MEDS: ACETYLCYSTEINE 10 %(100MG/ML) SOL 4ML NEB SCH ×3 (06:40→18:16)
[2023-03-23] MEDS: ALBUTEROL SULF 2.5 MG/0.5ML(0.5%) NEB SOLN NEB SCH ×3 (06:40→18:16)
[2023-03-23] MEDS: Juven Orange Powder PACKET 27.5gm PO SCH ×2 (08:00→18:16)
[2023-03-23] MEDS: Ensure HIGH Protein Chocolate 8oz Bottle PO SCH ×3 (08:00→18:16)
[2023-03-23] MEDS: ALBUTEROL SULF 2.5 MG/0.5ML(0.5%) NEB SOLN NEB PRN (15:35)
[2023-03-23] MEDS: HYDROcodone-ACET 5/325MG TAB PO PRN (15:36)
[2023-03-23 16:01] LABS: Basophils # (auto) 0.1 10 ^3/uL (0-0.2); Basophils % (auto) 0.8 % (0.0-2.0); Eosinophils # (auto) 0.4 10 ^3/uL (0-0.8); Eosinophils % (auto) 3.6 % (0.0-7.0); Hematocrit 34.5 % (41.0-53.0); Hemoglobin 10.7 g/dL (13.5-17.5); Lymphocytes # (auto) 2.9 10 ^3/uL (0.4-5.4); Lymphocytes % (auto) 27.4 % (10.0-50.0); Mean Corpuscular Hemoglobin 23.5 pg (28.0-32.0); Mean Corpuscular Volume 75.6 fL (80.0-100.0); Monocytes # (auto) 0.9 10 ^3/uL (0-1.3); Monocytes % (auto) 8.3 % (0.0-12.0); Neutrophils # (auto) 6.4 10 ^3/uL (1.6-8.6); Neutrophils % (auto) 59.9 % (37.0-80.0); Nucleated Red Blood Cells % 0.1 %; Red Blood Cells 4.57 10^6/uL (4.5-5.90); Red Cell Distribution Width 18.4 % (11.8-14.3); White Blood Cell 10.7 10^3/uL (4.4-10.8)
[2023-03-23 16:19] LABS: Alanine Aminotransferase 35 U/L (7-40); Albumin 3.7 g/dL (3.2-4.8); Alkaline Phosphatase 86 U/L (46-116); Anion Gap 7 (5-15); Aspartate Aminotransferase 16 U/L (13-40); Calcium 9.8 mg/dL (8.5-10.1); Carbon Dioxide 27 mmol/L (20-30); Chloride 99 mmol/L (98-107); Glucose 89 mg/dL (74-106); Potassium 3.9 mmol/L (3.5-5.1); Sodium 133 mmol/L (136-145)
[2023-03-23 16:20] LABS: BUN/Creatinine Ratio 15.2 (10.0-20.0); Bilirubin, Total 0.5 mg/dL (0.2-1.0); Blood Urea Nitrogen < 5 mg/dL (9-23); Total Protein 7.3 g/dL (5.7-8.2)
[2023-03-23] MEDS ORDERED: CALCIUM CARB 500 MG CHEW TAB PO PRN (23:45)
[2023-03-23] MEDS ORDERED: FAMOTIDINE 20 MG TAB PO ONE (23:45)
[2023-03-24] VITALS (22 sets, daily range): BP systolic 100–139; BP diastolic 54–76; PULSE 62–115; RESP 17–30; TEMP 98.1–100.4; O2SAT 95–100
[2023-03-24] MEDS: ALBUTEROL SULF 2.5 MG/0.5ML(0.5%) NEB SOLN NEB PRN (03:54)
[2023-03-24] MEDS: MORPHINE SULFATE INJ 2 MG/ml SYRG IV PRN ×4 (04:00→19:53)
[2023-03-24] MEDS: CEFEPIME 2GM/50ML NS 50 ML IV SCH ×2 (06:00→13:18)
[2023-03-24] MEDS: ACETYLCYSTEINE 10 %(100MG/ML) SOL 4ML NEB SCH ×3 (07:06→19:00)
[2023-03-24] MEDS: IPRATROPIUM BROM 0.5 MG/2.5ML INH SOL NEB SCH ×3 (07:06→18:59)
[2023-03-24] MEDS: ALBUTEROL SULF 2.5 MG/0.5ML(0.5%) NEB SOLN NEB SCH ×3 (07:06→18:59)
[2023-03-24] MEDS: Juven Orange Powder PACKET 27.5gm PO SCH ×2 (08:00→18:02)
[2023-03-24] MEDS: Ensure HIGH Protein Chocolate 8oz Bottle PO SCH ×3 (08:00→18:02)
[2023-03-24] MEDS: LINEZOLID 600MG/300ML 300 ML IV SCH (09:25)
[2023-03-24] MEDS: diphenhdrAMINE HCL 50 MG/1 ML VL IV PRN ×2 (16:04→23:31)
[2023-03-24] MEDS: HYDROcodone-ACET 5/325MG TAB PO PRN (17:28)
[2023-03-24] MEDS: PIPERACILLIN-TAZO 4.5GM 100 ML IV SCH (23:31)
[2023-03-25] VITALS (9 sets, daily range): BP systolic 98–132; BP diastolic 54–73; PULSE 65–107; RESP 13–24; TEMP 37; O2SAT 94–99
[2023-03-25] MEDS: ACETYLCYSTEINE 10 %(100MG/ML) SOL 4ML NEB SCH (06:00)
[2023-03-25] MEDS: ALBUTEROL SULF 2.5 MG/0.5ML(0.5%) NEB SOLN NEB SCH ×2 (06:00→12:03)
[2023-03-25] MEDS: IPRATROPIUM BROM 0.5 MG/2.5ML INH SOL NEB SCH ×2 (06:00→12:03)
[2023-03-25] MEDS: PIPERACILLIN-TAZO 4.5GM 100 ML IV SCH ×2 (06:20→12:00)
[2023-03-25] MEDS: MORPHINE SULFATE INJ 2 MG/ml SYRG IV PRN ×2 (06:44→12:56)
[2023-03-25] MEDS: Juven Orange Powder PACKET 27.5gm PO SCH (08:00)
[2023-03-25] MEDS: Ensure HIGH Protein Chocolate 8oz Bottle PO SCH ×2 (08:00→12:00)
[2023-03-25] MEDS: HYDROcodone-ACET 5/325MG TAB PO PRN (09:49)
[2023-03-25] MEDS: diphenhdrAMINE HCL 50 MG/1 ML VL IV PRN (12:49)
== END 2023-03-25 14:15 | disposition home health service (06) | DRG 720 ==
LOC: ER 22:55 → EDBD 22:55 → TELE 02-12 06:52 → DOU IN ICU 02-13 19:44 → CENTRAL 03-11 15:38 → DOU IN ICU 03-12 12:16
PROVIDERS: ADMIT Nurse Practitioner; ATTEND Internal Medicine
PROC: B54MZZA Ultrasonography of Right Upper Extremity Veins, Guidance (ICD-10-PCS; 2023-02-12)
PROC: 05HB33Z Insertion of Infusion Device into Right Basilic Vein, Percutaneous Approach (ICD-10-PCS; 2023-02-12)
PROC: 0B9L8ZZ Drainage of Left Lung, Via Natural or Artificial Opening Endoscopic (ICD-10-PCS; principal; 2023-02-12 09:15)
PROC: 0B9L8ZZ Drainage of Left Lung, Via Natural or Artificial Opening Endoscopic (ICD-10-PCS; 2023-02-13)
PROC: 0B9J8ZZ Drainage of Left Lower Lung Lobe, Via Natural or Artificial Opening Endoscopic (ICD-10-PCS; 2023-02-16)
PROC: 5A1945Z Respiratory Ventilation, 24-96 Consecutive Hours (ICD-10-PCS; 2023-02-22)
DX: A41.9 Sepsis, unspecified organism (principal); J96.21 Acute and chronic respiratory failure with hypoxia; G82.50 Quadriplegia, unspecified; J15.69 Pneumonia due to other Gram-negative bacteria; L89.154 Pressure ulcer of sacral region, stage 4; J15.9 Unspecified bacterial pneumonia; S12.9XXA Fracture of neck, unspecified, initial encounter; E87.1 Hypo-osmolality and hyponatremia; T17.990A Other foreign object in respiratory tract, part unspecified in causing asphyxiation, initial encounter; Z20.822 Contact with and (suspected) exposure to COVID-19; E86.0 Dehydration; J98.11 Atelectasis; M86.18 Other acute osteomyelitis, other site; K52.89 Other specified noninfective gastroenteritis and colitis; D50.9 Iron deficiency anemia, unspecified; E87.6 Hypokalemia; E55.9 Vitamin D deficiency, unspecified; I44.1 Atrioventricular block, second degree; M46.28 Osteomyelitis of vertebra, sacral and sacrococcygeal region; R74.01 Elevation of levels of liver transaminase levels; J98.19 Other pulmonary collapse; L03.317 Cellulitis of buttock; L02.31 Cutaneous abscess of buttock; Z16.24 Resistance to multiple antibiotics; N39.0 Urinary tract infection, site not specified; V89.2XXS Person injured in unspecified motor-vehicle accident, traffic, sequela; Z93.0 Tracheostomy status; Y92.410 Unspecified street and highway as the place of occurrence of the external cause; Y93.89 Activity, other specified; Y99.8 Other external cause status
CPT/HCPCS: 31720; 36415; 36600; 71045; 71260; 73020; 74177; 80048; 80053; 80061; 80202; 80307; 81001; 82306; 82565; 82607; 82746; 82805; 82962; 83540; 83550; 83605; 83615; 83735; 83880; 84100; 84439; 84443; 84481; 84484; 85007; 85025; 85027; 85045; 85610; 85730; 86141; 87040; 87070; 87077; 87081; 87086; 87088; 87186; 87205; 87426; 87804; 92610; 93005; 94640; 94667; 99291; A4605; G0378; J0171; J0692; J1100; J1756; J1956; J2001; J2250; J2405; J2543; J3480; J3490

== ENCOUNTER 2023-05-29 05:57 | Inpatient (IN) | payer MEDICAID ==
[2023-05-29] VITALS (14 sets, daily range): BP systolic 74–137; BP diastolic 37–118; PULSE 37–138; RESP 14–28; TEMP 98.7; O2SAT 80–100
[~2023-05-29] VITALS: Ht 175.3 cm; Wt 65.0 kg
[2023-05-29] MEDS: LORazepam 2MG/ML-1ML VIAL ONE (07:47)
[2023-05-29] MEDS: LORazepam 2MG/ML-1ML VIAL IM ONE (07:47)
[2023-05-29] MEDS: levETIRAcetam 1000 mg/100ml 100 ML IV ONE ×2 (07:59→08:17)
[2023-05-29 08:08] LABS: Basophils # (auto) 0.1 10 ^3/uL (0-0.2); Monocytes # (auto) 0.6 10 ^3/uL (0-1.3); Monocytes % (auto) 4.2 % (0.0-12.0); Nucleated Red Blood Cells % 0.1 %
[2023-05-29 08:10] LABS: Basophils % (auto) 0.4 % (0.0-2.0); Eosinophils # (auto) 0.5 10 ^3/uL (0-0.8); Eosinophils % (auto) 3.2 % (0.0-7.0); Lymphocytes # (auto) 1.9 10 ^3/uL (0.4-5.4); Lymphocytes % (auto) 12.9 % (10.0-50.0); Mean Corpuscular Hemoglobin 24.4 pg (28.0-32.0); Mean Corpuscular Hgb Conc. 31.1 g/dL (32.0-36.0); Mean Corpuscular Volume 78.4 fL (80.0-100.0); Neutrophils # (auto) 11.9 10 ^3/uL (1.6-8.6); Neutrophils % (auto) 79.3 % (37.0-80.0); Red Blood Cells 5.74 10^6/uL (4.5-5.90); Red Cell Distribution Width 16.6 % (11.8-14.3); White Blood Cell 14.9 10^3/uL (4.4-10.8)
[2023-05-29] MEDS: MORPHINE SULFATE INJ 2 MG/ml SYRG IV ONE (08:24)
[2023-05-29 08:25] LABS: Anion Gap 8 (5-15); Calcium 9.5 mg/dL (8.5-10.1); Carbon Dioxide 28 mmol/L (20-30); Chloride 103 mmol/L (98-107); Glucose 102 mg/dL (74-106); Potassium 4.4 mmol/L (3.5-5.1); Sodium 139 mmol/L (136-145)
[2023-05-29 08:27] LABS: Blood Urea Nitrogen 8 mg/dL (9-23)
[2023-05-29] MEDS: cefTRIAXone 1GM/50ML D5W 50 ML IV ONE (09:09)
[2023-05-29] MEDS: SODIUM CHLORIDE 0.9% 1,000 ML IV ONE ×2 (09:34→11:02)
[2023-05-29 09:35] LABS: Urine Bacteria NONE SEEN /hpf (None Seen); Urine Blood Negative /uL (Negative); Urine Clarity CLOUDY (Clear); Urine Color Yellow (Yellow); Urine Mucus MODERATE (None Seen); Urine Protein, UAD 1+ (Negative); Urine Specific Gravity 1.016 (1.001-1.035); Urine Urobilinogen Normal (Negative); Urine WBC 13 /hpf (0 - 3); Urine pH 6.5 (5.0-8.0)
[2023-05-29] MEDS: SODIUM CHLORIDE 0.9 % NEB SOLN 3ML NEB ONE (09:43)
[2023-05-29 09:59] LABS: Base Excess -0.7 mmol/L (-2.0-2.0)
[2023-05-29] MEDS ORDERED: ONDANSETRON HCL 4 MG/2 ML VIAL IV PRN (10:00)
[2023-05-29] MEDS ORDERED: MORPHINE SULFATE INJ 2 MG/ml SYRG IV PRN (10:00)
[2023-05-29 10:19] LABS: INR 1.08 (0.9-1.15); Prothrombin Time 11.3 sec (9.3-11.8)
[2023-05-29 10:40] LABS: Amphetamine Screen, Urine Neg (NEGATIVE); Barbiturate Scree,Urine Neg (NEGATIVE); Benzodiazephine Screen, Urine Neg (NEGATIVE); Cocaine Screen, Urine Neg (NEGATIVE); Opiate Scree,Urine Neg (NEGATIVE)
[2023-05-29 10:41] LABS: Cannabinoid Screen, Urine Neg (NEGATIVE); Phencyclidine Screen, Urine Neg (NEGATIVE)
[2023-05-29] MEDS ORDERED: LORazepam 2MG/ML-1ML VIAL IV PRN ×2 (10:45→14:15)
[2023-05-29] MEDS ORDERED: hydrALAZINE HCL 20 MG/ML VL IV PRN (10:45)
[2023-05-29] MEDS: levETIRAcetam 1000 mg/100ml 100 ML IV SCH (11:01)
[2023-05-29] MEDS: SODIUM CHLORIDE 0.9% 1,000 ML IV SCH (11:03)
[2023-05-29] MEDS: ENOXAPARIN SOD 40 MG/0.4 ML SYRINGE SC SCH (11:03)
[2023-05-29] MEDS ORDERED: NOREPINEPHRINE 8 MG/250ML KIT 250 ML IV ONE (12:37)
[2023-05-29] MEDS ORDERED: NOREPINEPHRINE 8 MG/250ML KIT 250 ML IV SCH (12:45)
[2023-05-29] MEDS ORDERED: LIDOCAINE 1% (LOCAL ANESTH.) PF 5ml SDV ID ONE (12:45)
[2023-05-29] MEDS ORDERED: CLINDAMYCIN 600MG IV 50 ML IV SCH (14:00)
[2023-05-29] MEDS ORDERED: SODIUM CHLOR 0.9% PF (SALINE LOCK) 10ML VIAL/SYR IV SCH (22:00)
[2023-05-29] MEDS ORDERED: CLOTRIMAZOLE 1 % CREAM 15GM TOP SCH (22:00)
[2023-05-29] MEDS ORDERED: levETIRAcetam 500 MG/5ML ORAL SOLN UD GT SCH (22:00)
== END 2023-05-29 15:20 | DRG 44 ==
LOC: ER 05:57 → EDBD 05:57 → TELE 09:54 → DOU IN ICU 12:39
PROVIDERS: ADMIT Nurse Practitioner Family; ATTEND Nurse Practitioner Family
PROC: 05HC33Z Insertion of Infusion Device into Left Basilic Vein, Percutaneous Approach (ICD-10-PCS; principal; 2023-05-29)
PROC: B54NZZA Ultrasonography of Left Upper Extremity Veins, Guidance (ICD-10-PCS; 2023-05-29)
PROC: 5A1935Z Respiratory Ventilation, Less than 24 Consecutive Hours (ICD-10-PCS; 2023-05-29)
DX: I60.9 Nontraumatic subarachnoid hemorrhage, unspecified (principal); J96.01 Acute respiratory failure with hypoxia; G82.50 Quadriplegia, unspecified; L89.154 Pressure ulcer of sacral region, stage 4; I67.1 Cerebral aneurysm, nonruptured; G40.901 Epilepsy, unspecified, not intractable, with status epilepticus; E86.0 Dehydration; Z93.0 Tracheostomy status; Z99.11 Dependence on respirator [ventilator] status; L97.829 Non-pressure chronic ulcer of other part of left lower leg with unspecified severity; D72.829 Elevated white blood cell count, unspecified; B35.9 Dermatophytosis, unspecified; L98.419 Non-pressure chronic ulcer of buttock with unspecified severity; Z74.01 Bed confinement status; Z83.3 Family history of diabetes mellitus; Z93.1 Gastrostomy status; Z79.899 Other long term (current) drug therapy
CPT/HCPCS: 36415; 36600; 70450; 71045; 80048; 80307; 81001; 82805; 83605; 85025; 85610; 87040; 87086; 93005; 94002; 99291; G0378

== ENCOUNTER 2023-09-16 17:03 | Inpatient (IN) | payer MEDICAID ==
[~2023-09-16] VITALS: Ht 190.5 cm; Wt 75.4 kg
[2023-09-16 18:13] VITALS: PULSE 115; RESP 16; O2SAT 96
[2023-09-16 19:48] LABS: Eosinophils # (auto) 0 10 ^3/uL (0-0.8); Hemoglobin 9.6 g/dL (13.5-17.5); Lymphocytes # (auto) 0.4 10 ^3/uL (0.4-5.4)
[2023-09-16 19:50] LABS: Basophils # (auto) 0.1 10 ^3/uL (0-0.2); Basophils % (auto) 0.3 % (0.0-2.0); Hematocrit 30.2 % (41.0-53.0); Mean Corpuscular Hemoglobin 23.7 pg (28.0-32.0); Mean Corpuscular Hgb Conc. 31.9 g/dL (32.0-36.0); Mean Corpuscular Volume 74.2 fL (80.0-100.0); Monocytes # (auto) 0.8 10 ^3/uL (0-1.3); Monocytes % (auto) 3.8 % (0.0-12.0); Neutrophils # (auto) 18.5 10 ^3/uL (1.6-8.6); Neutrophils % (auto) 93.9 % (37.0-80.0); Red Blood Cells 4.07 10^6/uL (4.5-5.90); Red Cell Distribution Width 15.9 % (11.8-14.3); White Blood Cell 19.8 10^3/uL (4.4-10.8)
[2023-09-16 20:00] VITALS: PULSE 116; RESP 19; O2SAT 94
[2023-09-16 20:04] LABS: Alanine Aminotransferase 28 U/L (7-40); Albumin 3.4 g/dL (3.2-4.8); Alkaline Phosphatase 89 U/L (46-116); Anion Gap 5 (5-15); Aspartate Aminotransferase 17 U/L (13-40); BUN/Creatinine Ratio 34.1 (10.0-20.0); Bilirubin, Total 0.6 mg/dL (0.2-1.0); Blood Urea Nitrogen 15 mg/dL (9-23); Calcium 8.8 mg/dL (8.5-10.1); Carbon Dioxide 24 mmol/L (20-30); Chloride 102 mmol/L (98-107); Glucose 141 mg/dL (74-106); Potassium 3.4 mmol/L (3.5-5.1); Sodium 131 mmol/L (136-145)
[2023-09-16] MEDS: ACETAMINOPHEN 500 MG TAB PO ONE (20:30)
[2023-09-16] MEDS: SODIUM CHLORIDE 0.9% 2,000 ML IV ONE (20:45)
[2023-09-16] MEDS: PIPERACILLIN-TAZO 4.5GM 100 ML IV ONE (21:47)
[2023-09-16] MEDS: IBUPROFEN 600 MG TAB PO ONE (22:40)
[2023-09-17] VITALS (9 sets, daily range): BP systolic 93–112; BP diastolic 45–59; PULSE 95–108; RESP 18–21; TEMP 98.3–101.4; O2SAT 96–100
[2023-09-17] MEDS ORDERED: ONDANSETRON HCL 4 MG/2 ML VIAL IV PRN (00:15)
[2023-09-17] MEDS ORDERED: VANCOMYCIN PER PHARMACY 0 MG IV SCH (00:15)
[2023-09-17 00:26] LABS: Urine Bacteria MANY /hpf (None Seen); Urine Blood 1+ /uL (Negative); Urine Clarity Turbid (Clear); Urine Color Yellow (Yellow); Urine Protein, UAD 2+ (Negative); Urine Specific Gravity 1.019 (1.001-1.035); Urine Urobilinogen 8 mg/dL (Negative); Urine WBC 286 /hpf (0 - 3); Urine WBC Clumps PRESENT /hpf (None Seen)
[2023-09-17] MEDS: VANCOMYCIN 1GM/200ML 200 ML IV ONE (01:24)
[2023-09-17] MEDS: PIPERACILLIN-TAZOB 3.375GM 100 ML IV SCH (05:58)
[2023-09-17] MEDS: ENOXAPARIN SOD 40 MG/0.4 ML SYRINGE SC SCH (09:24)
[2023-09-17] MEDS: POTASSIUM CHL 20 Meq TABLET PO ONE (13:27)
[2023-09-17] MEDS: VANCOMYCIN 1GM/200ML 200 ML IV SCH (13:28)
[2023-09-17] MEDS: CEFEPIME 1GM/ 50ML 50 ML IV SCH (14:41)
[2023-09-17] MEDS: ACETAMINOPHEN 325 MG TAB PO PRN (16:24)
[2023-09-17] MEDS: MUPIROCIN 2% OINT 15gm or 22gm FOR MRSA NARES EACHNOSTRI SCH (22:00)
[2023-09-17] MEDS: HYDROcodone-ACET 5/325MG TAB PO PRN (22:05)
[2023-09-18] VITALS (9 sets, daily range): BP systolic 108–135; BP diastolic 65–88; PULSE 91–103; RESP 14–22; TEMP 98.9–102.5; O2SAT 96–98
[2023-09-18 06:43] LABS: Basophils # (auto) 0 10 ^3/uL (0-0.2); Basophils % (auto) 0.4 % (0.0-2.0); Eosinophils # (auto) 0 10 ^3/uL (0-0.8); Eosinophils % (auto) 0.2 % (0.0-7.0); White Blood Cell 10.7 10^3/uL (4.4-10.8)
[2023-09-18 06:45] LABS: Hematocrit 29.8 % (41.0-53.0); Hemoglobin 9.6 g/dL (13.5-17.5); Lymphocytes % (auto) 18.5 % (10.0-50.0); Mean Corpuscular Hemoglobin 23.9 pg (28.0-32.0); Mean Corpuscular Hgb Conc. 32.1 g/dL (32.0-36.0); Mean Corpuscular Volume 74.4 fL (80.0-100.0); Monocytes # (auto) 1.2 10 ^3/uL (0-1.3); Monocytes % (auto) 11.1 % (0.0-12.0); Neutrophils # (auto) 7.5 10 ^3/uL (1.6-8.6); Neutrophils % (auto) 69.8 % (37.0-80.0); Red Cell Distribution Width 16.5 % (11.8-14.3)
[2023-09-18 06:52] LABS: Alanine Aminotransferase 35 U/L (7-40); Albumin 3.4 g/dL (3.2-4.8); Alkaline Phosphatase 113 U/L (46-116); Anion Gap 5 (5-15); BUN/Creatinine Ratio 22.9 (10.0-20.0); Blood Urea Nitrogen 8 mg/dL (9-23); Carbon Dioxide 23 mmol/L (20-30); Chloride 103 mmol/L (98-107); Glucose 100 mg/dL (74-106); Potassium 3.5 mmol/L (3.5-5.1); Sodium 131 mmol/L (136-145)
[2023-09-18 06:53] LABS: Bilirubin, Total 0.6 mg/dL (0.2-1.0); Total Protein 7.4 g/dL (5.7-8.2)
[2023-09-18 07:10] LABS: Aspartate Aminotransferase 25 U/L (13-40)
[2023-09-18] MEDS: VANCOMYCIN 1GM/200ML 200 ML IV SCH (20:17)
[2023-09-19] VITALS (8 sets, daily range): BP systolic 108–146; BP diastolic 75–89; PULSE 84–95; RESP 16–20; TEMP 97.7–100.9; O2SAT 94–99
[2023-09-19] MEDS ORDERED: VANCOMYCIN PER PHARMACY 0 MG IV SCH (09:00)
[2023-09-19 12:17] LABS: Basophils # (auto) 0.1 10 ^3/uL (0-0.2); Basophils % (auto) 0.5 % (0.0-2.0); Eosinophils # (auto) 0.2 10 ^3/uL (0-0.8); Eosinophils % (auto) 1.9 % (0.0-7.0); Hematocrit 29.2 % (41.0-53.0); Hemoglobin 9.4 g/dL (13.5-17.5); Lymphocytes # (auto) 2.3 10 ^3/uL (0.4-5.4); Lymphocytes % (auto) 24.3 % (10.0-50.0); Mean Corpuscular Hemoglobin 23.8 pg (28.0-32.0); Mean Corpuscular Hgb Conc. 32.1 g/dL (32.0-36.0); Mean Corpuscular Volume 74.3 fL (80.0-100.0); Monocytes # (auto) 1.3 10 ^3/uL (0-1.3); Monocytes % (auto) 13.7 % (0.0-12.0); Neutrophils # (auto) 5.7 10 ^3/uL (1.6-8.6); Neutrophils % (auto) 59.6 % (37.0-80.0); Red Blood Cells 3.93 10^6/uL (4.5-5.90); Red Cell Distribution Width 16.5 % (11.8-14.3); White Blood Cell 9.5 10^3/uL (4.4-10.8)
[2023-09-19 12:32] LABS: Alanine Aminotransferase 45 U/L (7-40); Albumin 3.3 g/dL (3.2-4.8); Alkaline Phosphatase 129 U/L (46-116); Anion Gap 6 (5-15); Aspartate Aminotransferase 27 U/L (13-40); BUN/Creatinine Ratio 18.8 (10.0-20.0); Bilirubin, Total 0.6 mg/dL (0.2-1.0); Blood Urea Nitrogen 6 mg/dL (9-23); Calcium 8.9 mg/dL (8.7-10.4); Carbon Dioxide 23 mmol/L (20-30); Chloride 104 mmol/L (98-107); Glucose 104 mg/dL (74-106); Magnesium 1.6 mg/dL (1.6-2.6); Potassium 3.1 mmol/L (3.5-5.1); Sodium 133 mmol/L (136-145); Total Protein 7.2 g/dL (5.7-8.2)
[2023-09-19] MEDS: POTASSIUM CHL 20 Meq TABLET PO ONE (13:07)
[2023-09-19] MEDS: LINEZOLID 600MG/300ML 300 ML IV SCH (13:07)
[2023-09-19 14:58] LABS: CRP High Sensitivity 10.84 mg/dL (<1.0)
[2023-09-19] MEDS: MEROPENEM 1GM IVPB 50 ML IV SCH (16:41)
[2023-09-20] VITALS (7 sets, daily range): BP systolic 98–132; BP diastolic 59–88; PULSE 85–105; RESP 16–19; TEMP 98.7–100.8; O2SAT 95–98
[2023-09-20 07:44] LABS: Basophils # (auto) 0 10 ^3/uL (0-0.2); Basophils % (auto) 0.4 % (0.0-2.0); Eosinophils # (auto) 0.3 10 ^3/uL (0-0.8); Eosinophils % (auto) 2.7 % (0.0-7.0); Hematocrit 31.5 % (41.0-53.0); Hemoglobin 10.1 g/dL (13.5-17.5); Lymphocytes # (auto) 2.3 10 ^3/uL (0.4-5.4); Lymphocytes % (auto) 19.9 % (10.0-50.0); Mean Corpuscular Hemoglobin 23.8 pg (28.0-32.0); Mean Corpuscular Hgb Conc. 32.1 g/dL (32.0-36.0); Monocytes # (auto) 1.2 10 ^3/uL (0-1.3); Monocytes % (auto) 10.4 % (0.0-12.0); Neutrophils # (auto) 7.7 10 ^3/uL (1.6-8.6); Neutrophils % (auto) 66.6 % (37.0-80.0); Nucleated Red Blood Cells % 0.1 %; Red Blood Cells 4.25 10^6/uL (4.5-5.90); Red Cell Distribution Width 16.7 % (11.8-14.3); White Blood Cell 11.6 10^3/uL (4.4-10.8)
[2023-09-20 07:59] LABS: Alanine Aminotransferase 46 U/L (7-40); Albumin 3.6 g/dL (3.2-4.8); Alkaline Phosphatase 131 U/L (46-116); Anion Gap 7 (5-15); Aspartate Aminotransferase 21 U/L (13-40); BUN/Creatinine Ratio 17.1 (10.0-20.0); Blood Urea Nitrogen 6 mg/dL (9-23); Calcium 9.2 mg/dL (8.5-10.1); Carbon Dioxide 24 mmol/L (20-30); Chloride 101 mmol/L (98-107); Glucose 92 mg/dL (74-106); Magnesium 1.7 mg/dL (1.6-2.6); Potassium 3.8 mmol/L (3.5-5.1); Sodium 132 mmol/L (136-145)
[2023-09-20 08:00] LABS: Bilirubin, Total 0.8 mg/dL (0.2-1.0); Total Protein 7.7 g/dL (5.7-8.2)
[2023-09-21] VITALS (7 sets, daily range): BP systolic 79–121; BP diastolic 64–82; PULSE 86–121; RESP 14–78; TEMP 97.7–98.5; O2SAT 97–99
[2023-09-21 06:26] LABS: Basophils # (auto) 0.1 10 ^3/uL (0-0.2); Mean Corpuscular Hgb Conc. 31.6 g/dL (32.0-36.0)
[2023-09-21 06:29] LABS: Basophils % (auto) 0.6 % (0.0-2.0); Eosinophils # (auto) 0.8 10 ^3/uL (0-0.8); Eosinophils % (auto) 5.9 % (0.0-7.0); Hemoglobin 9.8 g/dL (13.5-17.5); Lymphocytes # (auto) 2.8 10 ^3/uL (0.4-5.4); Lymphocytes % (auto) 21.6 % (10.0-50.0); Mean Corpuscular Hemoglobin 23.5 pg (28.0-32.0); Mean Corpuscular Volume 74.5 fL (80.0-100.0); Monocytes # (auto) 1.2 10 ^3/uL (0-1.3); Monocytes % (auto) 9.5 % (0.0-12.0); Neutrophils # (auto) 8.1 10 ^3/uL (1.6-8.6); Neutrophils % (auto) 62.4 % (37.0-80.0); Red Blood Cells 4.15 10^6/uL (4.5-5.90); Red Cell Distribution Width 16.6 % (11.8-14.3)
[2023-09-21 06:43] LABS: Alanine Aminotransferase 36 U/L (7-40); Albumin 3.3 g/dL (3.2-4.8); Alkaline Phosphatase 129 U/L (46-116); Anion Gap 6 (5-15); Aspartate Aminotransferase 16 U/L (13-40); BUN/Creatinine Ratio 21.1 (10.0-20.0); Bilirubin, Total 0.4 mg/dL (0.2-1.0); Blood Urea Nitrogen 8 mg/dL (9-23); Calcium 9.1 mg/dL (8.7-10.4); Carbon Dioxide 26 mmol/L (20-30); Chloride 101 mmol/L (98-107); Glucose 101 mg/dL (74-106); Magnesium 1.7 mg/dL (1.6-2.6); Potassium 3.8 mmol/L (3.5-5.1); Sodium 133 mmol/L (136-145); Total Protein 7.4 g/dL (5.7-8.2)
[2023-09-21] MEDS: FREE WATER GT SCH (10:00)
[2023-09-21] MEDS: ERTAPENEM SOD INJ 1 GM in SODIUM CHL 0.9% 50 ML IV SCH (13:15)
[2023-09-22] VITALS (7 sets, daily range): BP systolic 102–147; BP diastolic 62–96; PULSE 64–107; RESP 16–20; TEMP 97.8–98.7; O2SAT 96–100
[2023-09-22 07:04] LABS: Eosinophils # (auto) 0.8 10 ^3/uL (0-0.8); Eosinophils % (auto) 5.9 % (0.0-7.0); Hemoglobin 10.1 g/dL (13.5-17.5)
[2023-09-22 07:07] LABS: Basophils # (auto) 0 10 ^3/uL (0-0.2); Basophils % (auto) 0.3 % (0.0-2.0); Hematocrit 32.1 % (41.0-53.0); Lymphocytes # (auto) 3.1 10 ^3/uL (0.4-5.4); Lymphocytes % (auto) 23.7 % (10.0-50.0); Mean Corpuscular Hemoglobin 23.5 pg (28.0-32.0); Mean Corpuscular Hgb Conc. 31.4 g/dL (32.0-36.0); Mean Corpuscular Volume 74.6 fL (80.0-100.0); Monocytes # (auto) 0.9 10 ^3/uL (0-1.3); Monocytes % (auto) 7.1 % (0.0-12.0); Neutrophils # (auto) 8.3 10 ^3/uL (1.6-8.6); Nucleated Red Blood Cells % 0.1 %; Red Blood Cells 4.31 10^6/uL (4.5-5.90); Red Cell Distribution Width 16.9 % (11.8-14.3); White Blood Cell 13.2 10^3/uL (4.4-10.8)
[2023-09-22 07:16] LABS: Chloride 102 mmol/L (98-107); Potassium 3.7 mmol/L (3.5-5.1); Sodium 135 mmol/L (136-145)
[2023-09-22 07:17] LABS: Anion Gap 6 (5-15); Calcium 9.1 mg/dL (8.5-10.1); Carbon Dioxide 27 mmol/L (20-30)
[2023-09-22 07:22] LABS: BUN/Creatinine Ratio 35.7 (10.0-20.0); Blood Urea Nitrogen 10 mg/dL (9-23); Glucose 83 mg/dL (74-106)
[2023-09-22] MEDS: MEROPENEM 1GM IVPB 50 ML IV SCH (11:17)
[2023-09-23 01:00] VITALS: BP 135/89; PULSE 81; RESP 18; TEMP 97.7; O2SAT 98
[2023-09-23 05:00] VITALS: BP 140/93; PULSE 75; RESP 17; TEMP 98; O2SAT 98
[2023-09-23 06:56] LABS: Basophils # (auto) 0.1 10 ^3/uL (0-0.2); Basophils % (auto) 0.5 % (0.0-2.0); Eosinophils # (auto) 0.9 10 ^3/uL (0-0.8); Hemoglobin 10.2 g/dL (13.5-17.5); Lymphocytes # (auto) 3.4 10 ^3/uL (0.4-5.4); White Blood Cell 13.1 10^3/uL (4.4-10.8)
[2023-09-23 07:00] LABS: Anion Gap 6 (5-15); Carbon Dioxide 27 mmol/L (20-30); Chloride 102 mmol/L (98-107); Potassium 4.2 mmol/L (3.5-5.1); Sodium 135 mmol/L (136-145)
[2023-09-23 07:01] LABS: Calcium 9.1 mg/dL (8.5-10.1); Eosinophils % (auto) 6.9 % (0.0-7.0); Hematocrit 32.5 % (41.0-53.0); Lymphocytes % (auto) 26.2 % (10.0-50.0); Mean Corpuscular Hemoglobin 23.6 pg (28.0-32.0); Mean Corpuscular Hgb Conc. 31.3 g/dL (32.0-36.0); Mean Corpuscular Volume 75.3 fL (80.0-100.0); Monocytes # (auto) 1.1 10 ^3/uL (0-1.3); Monocytes % (auto) 8.5 % (0.0-12.0); Neutrophils # (auto) 7.6 10 ^3/uL (1.6-8.6); Neutrophils % (auto) 57.9 % (37.0-80.0); Red Blood Cells 4.31 10^6/uL (4.5-5.90); Red Cell Distribution Width 16.8 % (11.8-14.3)
[2023-09-23 07:06] LABS: BUN/Creatinine Ratio 30.8 (10.0-20.0); Blood Urea Nitrogen 8 mg/dL (9-23); Glucose 94 mg/dL (74-106)
[2023-09-23 09:14] VITALS: BP 121/91; PULSE 85; RESP 19; TEMP 98.8; O2SAT 100
[2023-09-23 13:00] VITALS: BP 122/88; PULSE 83; RESP 19; TEMP 98.8; O2SAT 100
[2023-09-23] MEDS ORDERED: VANCOMYCIN PER PHARMACY 0 MG IV SCH (16:00)
[2023-09-23 17:07] VITALS: BP 127/89; PULSE 83; RESP 17; TEMP 98; O2SAT 95
[2023-09-23] MEDS: VANCOMYCIN 1GM/200ML 200 ML IV ONE (18:10)
[2023-09-23 21:00] VITALS: BP 111/74; PULSE 108; RESP 20; TEMP 98.3; O2SAT 20
[2023-09-24] VITALS (7 sets, daily range): BP systolic 99–110; BP diastolic 62–70; PULSE 83–101; RESP 16–20; TEMP 97.7–98.5; O2SAT 98–100
[2023-09-24] MEDS: VANCOMYCIN 1GM/200ML 200 ML IV SCH (02:38)
[2023-09-24 09:42] LABS: Basophils # (auto) 0.1 10 ^3/uL (0-0.2); Basophils % (auto) 0.7 % (0.0-2.0); Eosinophils # (auto) 0.8 10 ^3/uL (0-0.8); Monocytes # (auto) 0.9 10 ^3/uL (0-1.3)
[2023-09-24 09:44] LABS: Eosinophils % (auto) 6.8 % (0.0-7.0); Hematocrit 32.8 % (41.0-53.0); Hemoglobin 10.1 g/dL (13.5-17.5); Lymphocytes # (auto) 3.1 10 ^3/uL (0.4-5.4); Lymphocytes % (auto) 25.9 % (10.0-50.0); Mean Corpuscular Hemoglobin 23.4 pg (28.0-32.0); Mean Corpuscular Hgb Conc. 30.7 g/dL (32.0-36.0); Mean Corpuscular Volume 76.2 fL (80.0-100.0); Monocytes % (auto) 7.5 % (0.0-12.0); Neutrophils # (auto) 6.9 10 ^3/uL (1.6-8.6); Neutrophils % (auto) 59.1 % (37.0-80.0); Red Cell Distribution Width 17.5 % (11.8-14.3); White Blood Cell 11.8 10^3/uL (4.4-10.8)
[2023-09-24 09:50] LABS: Anion Gap 6 (5-15); Carbon Dioxide 26 mmol/L (20-30); Chloride 103 mmol/L (98-107); Potassium 4.1 mmol/L (3.5-5.1); Sodium 135 mmol/L (136-145)
[2023-09-24 09:51] LABS: Calcium 9.2 mg/dL (8.5-10.1)
[2023-09-24 09:56] LABS: BUN/Creatinine Ratio 27.6 (10.0-20.0); Blood Urea Nitrogen 8 mg/dL (9-23); Glucose 93 mg/dL (74-106); Magnesium 1.8 mg/dL (1.6-2.6)
[2023-09-24] MEDS ORDERED: ERTA1INJ IJ (12:50)
[2023-09-25 01:00] VITALS: BP 91/57; PULSE 91; RESP 20; TEMP 97.7; O2SAT 98
[2023-09-25 05:00] VITALS: BP 102/56; PULSE 76; RESP 20; TEMP 97.4; O2SAT 98
[2023-09-25 08:41] VITALS: BP 116/78; PULSE 78; RESP 16; TEMP 97.8; O2SAT 99
[2023-09-25 12:42] VITALS: BP 97/51; PULSE 94; RESP 16; TEMP 98.3; O2SAT 99
[2023-09-25 14:03] LABS: Basophils # (auto) 0.1 10 ^3/uL (0-0.2); Red Cell Distribution Width 17.1 % (11.8-14.3)
[2023-09-25 14:06] LABS: Basophils % (auto) 0.9 % (0.0-2.0); Eosinophils # (auto) 0.6 10 ^3/uL (0-0.8); Eosinophils % (auto) 4.4 % (0.0-7.0); Hematocrit 34.4 % (41.0-53.0); Hemoglobin 10.7 g/dL (13.5-17.5); Mean Corpuscular Hemoglobin 23.6 pg (28.0-32.0); Mean Corpuscular Hgb Conc. 31.1 g/dL (32.0-36.0); Mean Corpuscular Volume 75.8 fL (80.0-100.0); Monocytes # (auto) 0.9 10 ^3/uL (0-1.3); Neutrophils # (auto) 10.8 10 ^3/uL (1.6-8.6); Neutrophils % (auto) 74.7 % (37.0-80.0); Red Blood Cells 4.54 10^6/uL (4.5-5.90); White Blood Cell 14.5 10^3/uL (4.4-10.8)
[2023-09-25 14:11] LABS: Chloride 101 mmol/L (98-107); Potassium 4.2 mmol/L (3.5-5.1); Sodium 134 mmol/L (136-145)
[2023-09-25 14:12] LABS: Anion Gap 5 (5-15); Carbon Dioxide 28 mmol/L (20-30)
[2023-09-25 14:13] LABS: Calcium 9.5 mg/dL (8.7-10.4)
[2023-09-25 14:17] LABS: BUN/Creatinine Ratio 23.1 (10.0-20.0); Blood Urea Nitrogen 6 mg/dL (9-23); Glucose 93 mg/dL (74-106)
[2023-09-25 17:00] VITALS: BP 84/40; PULSE 83; RESP 16; TEMP 98.7; O2SAT 96
[2023-09-25 18:45] VITALS: TEMP 37.1
== END 2023-09-25 19:00 | disposition home health service (06) | DRG 720 ==
LOC: ER 17:03 → EDBD 17:03 → OVERFLOW 23:59 → WEST WING 09-17 02:00 → CENTRAL 09-20 10:44
PROVIDERS: ADMIT Internal Medicine Pulmonary Disease; ATTEND Internal Medicine Pulmonary Disease
PROC: 05H933Z Insertion of Infusion Device into Right Brachial Vein, Percutaneous Approach (ICD-10-PCS; principal; 2023-09-22)
PROC: B54MZZA Ultrasonography of Right Upper Extremity Veins, Guidance (ICD-10-PCS; 2023-09-22)
DX: A41.51 Sepsis due to Escherichia coli [E. coli] (principal); G82.50 Quadriplegia, unspecified; L89.154 Pressure ulcer of sacral region, stage 4; L89.614 Pressure ulcer of right heel, stage 4; L89.224 Pressure ulcer of left hip, stage 4; L89.624 Pressure ulcer of left heel, stage 4; M00.811 Arthritis due to other bacteria, right shoulder; E87.1 Hypo-osmolality and hyponatremia; L03.116 Cellulitis of left lower limb; N39.0 Urinary tract infection, site not specified; E87.6 Hypokalemia; S31.20XA Unspecified open wound of penis, initial encounter; Z16.12 Extended spectrum beta lactamase (ESBL) resistance; Z83.3 Family history of diabetes mellitus; X58.XXXA Exposure to other specified factors, initial encounter; Y93.89 Activity, other specified; Y92.89 Other specified places as the place of occurrence of the external cause; Y99.8 Other external cause status; B96.20 Unspecified Escherichia coli [E. coli] as the cause of diseases classified elsewhere
CPT/HCPCS: 36415; 71045; 73221; 76881; 80048; 80053; 80202; 81001; 83605; 83735; 83880; 84484; 85025; 86141; 87040; 87077; 87081; 87186; 87205; 96365; 96366; G0378; J1335; J2185; J2543

== ENCOUNTER 2023-11-14 13:47 | Emergency (ER) | payer MEDICAID ==
[~2023-11-14] VITALS: Ht 177.8 cm; Wt 72.7 kg
[~2023-11-14 13:47] MED LIST: ERTA1INJ IJ
[2023-11-14 13:52] VITALS: BP 133/89; PULSE 87; RESP 16; O2SAT 98
== END 2023-11-14 17:57 | disposition home or self-care (01) ==
LOC: ER 13:47 → EDBD 13:47 → ER 17:57
DX: T82.898A Other specified complication of vascular prosthetic devices, implants and grafts, initial encounter (principal); Z79.899 Other long term (current) drug therapy; Y92.89 Other specified places as the place of occurrence of the external cause

== ENCOUNTER → 2023-12-22 | Outpatient (CLI) | payer MEDICAID | END | disposition home or self-care (01) | LOC: Rad HDHVI 13:45 | PROVIDERS: ATTEND Internal Medicine Cardiovascular Disease | DX: I10 Essential (primary) hypertension (principal) | CPT/HCPCS: 93306 ==

== ENCOUNTER 2024-01-25 14:58 | Inpatient (IN) | payer MEDICAID ==
[~2024-01-25] VITALS: Ht 182.9 cm; Wt 75.7 kg
[2024-01-25 18:42] LABS: Basophils # (auto) 0.1 10 ^3/uL (0-0.2); Basophils % (auto) 0.7 % (0.0-2.0); Eosinophils # (auto) 0.2 10 ^3/uL (0-0.8); Eosinophils % (auto) 2.8 % (0.0-7.0); Hemoglobin 14.5 g/dL (13.5-17.5); Mean Corpuscular Hemoglobin 26.2 pg (28.0-32.0); Monocytes # (auto) 0.6 10 ^3/uL (0-1.3); White Blood Cell 8.8 10^3/uL (4.4-10.8)
[2024-01-25 18:43] LABS: Hematocrit 44.2 % (41.0-53.0); Lymphocytes % (auto) 33.6 % (10.0-50.0); Mean Corpuscular Hgb Conc. 32.8 g/dL (32.0-36.0); Mean Corpuscular Volume 79.9 fL (80.0-100.0); Neutrophils # (auto) 4.9 10 ^3/uL (1.6-8.6); Neutrophils % (auto) 55.9 % (37.0-80.0); Nucleated Red Blood Cells % 0.3 %; Platelet Count (auto) 265 10^3/uL (140-450); Red Blood Cells 5.53 10^6/uL (4.5-5.90)
[2024-01-25 18:56] LABS: Chloride 107 mmol/L (98-107); Potassium 4.4 mmol/L (3.5-5.1); Sodium 138 mmol/L (136-145)
[2024-01-25 18:57] LABS: Anion Gap 8 (5-15); Calcium 9.7 mg/dL (8.7-10.4); Carbon Dioxide 23 mmol/L (20-31)
[2024-01-25] MEDS ORDERED: NITROGLYCERIN 0.4 MG SL TAB SL PRN (19:00)
[2024-01-25] MEDS ORDERED: ACETAMINOPHEN 325 MG TAB PO PRN (19:00)
[2024-01-25] MEDS ORDERED: DOCUSATE SOD 100 MG CAP PO PRN (19:00)
[2024-01-25] MEDS ORDERED: MORPHINE SULFATE INJ 2 MG/ml SYRG IV PRN (19:00)
[2024-01-25] MEDS ORDERED: HYDROcodone-ACET 5/325MG TAB PO PRN (19:00)
[2024-01-25] MEDS ORDERED: ONDANSETRON HCL 4 MG/2 ML VIAL IV PRN (19:00)
[2024-01-25 19:02] LABS: Blood Urea Nitrogen 13 mg/dL (9-23); Glucose 98 mg/dL (74-106)
[2024-01-25] MEDS: SODIUM CHLOR 0.9% PF (SALINE LOCK) 10ML VIAL/SYR IV SCH (22:00)
[2024-01-26 06:24] LABS: Basophils # (auto) 0.1 10 ^3/uL (0-0.2); Eosinophils # (auto) 0.2 10 ^3/uL (0-0.8); Monocytes # (auto) 0.7 10 ^3/uL (0-1.3); White Blood Cell 9.9 10^3/uL (4.4-10.8)
[2024-01-26 06:27] LABS: Basophils % (auto) 0.8 % (0.0-2.0); Eosinophils % (auto) 2.1 % (0.0-7.0); Hematocrit 45.6 % (41.0-53.0); Hemoglobin 14.5 g/dL (13.5-17.5); Lymphocytes # (auto) 3.5 10 ^3/uL (0.4-5.4); Lymphocytes % (auto) 35.7 % (10.0-50.0); Mean Corpuscular Hemoglobin 25.7 pg (28.0-32.0); Mean Corpuscular Hgb Conc. 31.9 g/dL (32.0-36.0); Mean Corpuscular Volume 80.6 fL (80.0-100.0); Monocytes % (auto) 7.2 % (0.0-12.0); Neutrophils # (auto) 5.4 10 ^3/uL (1.6-8.6); Neutrophils % (auto) 54.2 % (37.0-80.0); Nucleated Red Blood Cells % 0.1 %; Platelet Count (auto) 261 10^3/uL (140-450); Red Blood Cells 5.66 10^6/uL (4.5-5.90); Red Cell Distribution Width 18.5 % (11.8-14.3)
[2024-01-26 06:47] LABS: Alanine Aminotransferase 48 U/L (7-40); Alkaline Phosphatase 102 U/L (46-116); Anion Gap 8 (5-15); Aspartate Aminotransferase 18 U/L (13-40); BUN/Creatinine Ratio 34.2 (10.0-20.0); Blood Urea Nitrogen 13 mg/dL (9-23); Carbon Dioxide 25 mmol/L (20-31); Chloride 105 mmol/L (98-107); Glucose 95 mg/dL (74-106); Potassium 4.1 mmol/L (3.5-5.1); Sodium 138 mmol/L (136-145)
[2024-01-26 06:48] LABS: Albumin 4.4 g/dL (3.2-4.8); Bilirubin, Total 0.6 mg/dL (0.2-1.0); Total Protein 7.7 g/dL (5.7-8.2)
[2024-01-26 07:40] VITALS: PULSE 72; RESP 14
[2024-01-26 09:00] VITALS: BP 106/67; PULSE 75; RESP 18; TEMP 97.9; O2SAT 97
[2024-01-26] MEDS ORDERED: OXYC-1050 PO (11:14)
[2024-01-26] MEDS ORDERED: MIDO5TAB4 PO ×2 (11:15→14:19)
[2024-01-26] MEDS ORDERED: APIX5TAB PO (11:15)
[2024-01-26] MEDS ORDERED: CHOL20007 OR (11:16)
[2024-01-26] MEDS ORDERED: CEFD300C2 PO (11:16)
[2024-01-26] MEDS ORDERED: MULT-1018 PO (11:17)
[2024-01-26] MEDS: ENOXAPARIN SOD 40 MG/0.4 ML SYRINGE SC SCH (12:33)
[2024-01-26] MEDS: MULTIPLE VITAMIN TAB PO SCH (12:33)
[2024-01-26 13:00] VITALS: BP 92/61; PULSE 76; RESP 16; TEMP 97.5; O2SAT 97
[2024-01-26] MEDS: MIDODRINE HCL 10 MG TAB PO ONE (15:27)
[2024-01-26 17:10] VITALS: BP 119/67; PULSE 59; RESP 17; TEMP 97.7; O2SAT 98
[2024-01-26 21:03] VITALS: BP 119/73; PULSE 77; RESP 16; TEMP 97.9; O2SAT 93
[2024-01-26] MEDS: ENOXAPARIN SOD 80 MG/0.8ML SYRINGE SC SCH (23:16)
[2024-01-27] MEDS ORDERED: MIDODRINE HCL 10 MG TAB PO SCH (10:00)
== END 2024-01-27 00:03 | disposition home or self-care (01) | DRG 813 ==
LOC: EDBD 14:58 → ER 14:58 → OVERFLOW 18:49 → CENTRAL 01-26 08:00
PROVIDERS: ADMIT Nurse Practitioner Family; ATTEND Student in an Organized Health Care Education/Training Program
DX: T85.528A Displacement of other gastrointestinal prosthetic devices, implants and grafts, initial encounter (principal); G82.20 Paraplegia, unspecified; Y83.8 Other surgical procedures as the cause of abnormal reaction of the patient, or of later complication, without mention of misadventure at the time of the procedure; Z83.3 Family history of diabetes mellitus; Z93.0 Tracheostomy status; Y92.89 Other specified places as the place of occurrence of the external cause
CPT/HCPCS: 36415; 74018; 80048; 80053; 85025; 96360; G0378

== ENCOUNTER → 2024-03-29 | Outpatient (CLI) | payer MEDICAID ==
[~2024-03-29] MED LIST changes: +APIX5TAB PO; +CEFD300C2 PO; +CHOL20007 OR; +MIDO5TAB4 PO; +MULT-1018 PO; +OXYC-1050 PO
[2024-03-29 12:58] LABS: Urine Bacteria None Seen /hpf (None Seen)
[2024-03-29 14:38] LABS: Urine Blood Negative /uL (Negative); Urine Clarity Turbid (Clear); Urine Color Colorless (Yellow); Urine Protein, UAD Negative (Negative); Urine Specific Gravity 1.019 (1.001-1.035); Urine Squamous Epithelial Cell FEW /hpf (<5); Urine Urobilinogen Normal (Negative); Urine WBC 79 /hpf (0 - 3)
== END | disposition home or self-care (01) ==
LOC: LAB 12:51
PROVIDERS: ATTEND Urology
DX: N39.0 Urinary tract infection, site not specified (principal)
CPT/HCPCS: 81001; 87086

== ENCOUNTER 2024-09-26 10:34 | Emergency (ER) | payer MEDICAID ==
[~2024-09-26] VITALS: Ht 172.7 cm; Wt 86.0 kg
[2024-09-26 11:00] VITALS: BP 138/103; PULSE 113; RESP 18; TEMP 97.8; O2SAT 97
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
== END 2024-09-26 11:09 | disposition left against medical advice (07) ==
LOC: ER 10:34
DX: M86.662 Other chronic osteomyelitis, left tibia and fibula (principal); M86.661 Other chronic osteomyelitis, right tibia and fibula; Z79.899 Other long term (current) drug therapy; Z79.01 Long term (current) use of anticoagulants

== ENCOUNTER 2024-10-10 08:24 | Emergency (ER) | payer MEDICAID ==
[~2024-10-10] VITALS: Ht 172.7 cm; Wt 85.0 kg
[2024-10-10 08:40] VITALS: BP 112/84; TEMP 98.9
[2024-10-10 08:50] VITALS: PULSE 95; RESP 18; O2SAT 95
--- NOTE | 2024-10-10 10:41 | ED.PDOC ---
History of Present Illness HPI Comments A 34 year-old male presents to the ED with a chief complaint of PICC line replacement for UTI treatment. Patient has no further complaints at this time and otherwise denies symptoms of fever, chills, N/V, dysuria, or hematuria. Chief Complaint: Tube Replacement Time Seen by MD: 10:41 Primary Care Provider: CLARA Soriano Notes: Medications, Allergies Allergies: Coded Allergies: NO KNOWN ALLERGIES (Unverified , 02/11/23) Home Meds Active Scripts Ertapenem Sodium (Ertapenem Sodium) 1 Gm Inj, 1 GM IJ DAILY for 14 Days, INJ Prov:JAMEY LEAL RESIDENT 09/24/23 Reported Medications Midodrine Hcl (Midodrine Hcl) 5 Mg Tab, 5 MG PO ONCE, TAB 01/26/24 Multiple Vitamin (Multivitamins) Tab, 1 TAB PO DAILY, #90 TAB 3 Refills 01/26/24 Cefdinir (Cefdinir) 300 Mg Cap, 1 CAP PO BID, #14 CAP 01/26/24 Cholecalciferol (VITAMIN D3) 2,000 Unit Tab, 5000 UNIT OR, TAB 01/26/24 Apixaban Base (ELIQUIS) 5 Mg Tab, 5 MG PO BID, TAB 01/26/24 Midodrine Hcl (Midodrine Hcl) 5 Mg Tab, 5 MG PO, TAB 01/26/24 Oxycodone W/ Acetaminophen (Oxycodone and Acetaminoph 7.5-300 mg) 1 Tab Tab, 1 TAB PO, TAB 01/26/24 Information Source: Patient Mode of Arrival: Wheelchair Severity: Moderate Past Medical History PAST MEDICAL HISTORY: Denies Surgical History: Denies all surgeries Family History Family History: Reviewed,noncontributory to illness, Unknown Social History Smoker: Non-Smoker Alcohol: Denies ETOH Use Drugs: Denies Drug Use Lives In: Home, Assisted Care Constitutional: denies: chills, diaphoresis, fatigue, fever, malaise, sweats, weakness, others EENTM: denies: blurred vision, double vision, ear bleeding, ear discharge, ear drainage, ear pain, ear ringing, eye pain, eye redness, hearing loss, mouth pain, mouth swelling, nasal discharge, nose bleeding, nose congestion, nose pain, photophobia, tearing, throat pain, throat swelling, voice changes, others Respiratory: denies: cough, hemoptysis, orthopnea, SOB at rest, shortness of breath, SOB with excertion, stridor, wheezing, others Cardiovascular: denies: chest pain, dizzy spells, diaphoresis, Dyspnea on exertion, edema, irregular heart beat, left arm pain, lightheadedness, palpitations, PND, syncope, others Gastrointestinal: denies: abdomen distended, abdominal pain, blood streaked bowels, constipated, diarrhea, dysphagia, difficulty swallowing, hematemesis, melena, nausea, poor appetite, poor fluid intake, rectal bleeding, rectal pain, vomiting, others Genitourinary: denies: burning, dysuria, flank pain, frequency, hematuria, incontinence, penile discharge, penile sore, pain, testicle pain, testicle sw elling, urgency, others Neurological: denies: dizziness, fainting, headache, left sided numbness, left sided weakness, numbness, paresthesia, pre-existing deficit, right sided numbness, right sided weakness, seizure, speech problems, tingling, tremors, weakness, others Musculoskeletal: denies: back pain, gout, joint pain, joint swelling, muscle pain, muscle stiffness, neck pain, others Integumetry: denies: bruises, change in color, change in hair/nails, dryness, laceration, lesions, lumps, rash, wounds, others Allergic/Immunocompromised: denies: Difficulty Healing, Frequent Infections, Hives, Itching, others Hematologic/Lymphatic: denies: anemia, blood clots, easy bleeding, easy bruising, swollen glands, others Endocrine: denies: excessive hunger, excessive sweating, excessive thirst, excessive urination, flushing, intolerance to cold, intolerance to heat, unexplained weight gain, unexplained weight loss, others Psychiatric: denies: anxiety, bipolar disorder, depression, hopeless, panic disorder, schizophrenia, sleepless, suicidal, others All Other Systems: Reviewed and Negative (PER HPI ) Physical Exam General Appearance: No Apparent Distress, Normal HEENT: Normal ENT Inspection, Pharynx Normal, TMs Normal Neck: Full Range of Motion, Non-Tender, Normal, Normal Inspection Respiratory: Chest Non-Tender, Lungs Clear, No Accessory Muscle Use, No Respiratory Distress, Normal Breath Sounds Cardiovascular: No Edema, No JVD, No Murmur, No Gallop, Normal Peripheral Pulses, Regular Rate/Rhythm Breast Exam: Deferred Gastrointestinal: No Organomegaly, Non Tender, No Pulsatile Mass, Normal Bowel Sounds, Soft Genitalia: Deferred Pelvic: Deferred Rectal: Deferred Extremities: No calf tenderness, Normal capillary refill, Normal inspection, Normal range of motion, Non-tender, No pedal edema Musculoskeletal : Apperance: Normal Neurologic: Alert, caving guide II-XII nml as Tested, No Motor Deficits, Normal Affect, Normal Mood, No Sensory Deficits Cerebellar Function: Normal Reflexes: Normal Skin: Dry, Normal Color, Warm Lymphatic: No Adenopathy Was a procedure done? Was a procedure done?: No Differential Dx Considerations may include: PICC Line replacement X-Ray, Labs, Meds, VS Vital Signs Date Time Temp Pulse Resp B/P (MAP) Pulse Ox O2 Delivery O2 Flow Rate FiO2 10/10/24 08:50 95 18 95 Room Air* 0 21 10/10/24 08:40 98.9 95 18 112/84 (93) 95 98.9 10/10/24 08:40 98.9 95 18 112/84 (93) 95 98.9 X-Ray, Labs, Meds, VS Comment A 34 year-old male presents to the ED with a chief complaint of PICC line replacement for UTI treatment. Patient arrives alert and oriented, ABC's intact, afebrile, vital signs stable, saturating well in room air Patient was sent for a midline by Dr. Montemayor On reevaluation, patient had symptomatic improvement. Patient is stable for discharge at this time. External notes reviewed. Test results and diagnostic imaging interpreted. All diagnostic findings, discharge care, education and instructions provided Follow-up with PCP in 2 to 3 days Patient verbalized understanding and agreed to treatment plan Vital signs stable, afebrile, no acute distress noted Patient ambulatory with strong steady gait Advised to return precautions for any new or worsening symptoms, return to ER immediately for re-evaluation Patient is aware that the purpose of this visit was for an acute medical emergency requiring emergent stabilization. Chronic conditions, including malignancies have not been ruled out. Patient is instructed to follow up with PCP as directed and discharge instructions for continued care and workup. If unable to arrange follow-up, patient is to return to the emergency department for reassessment. Patient (parent or legal guardian if applicable) was given verbal and written discharge instructions and acknowledges understanding. Additional MDM Review of External, Non-ED records: External records reviewed. Discussion with independent historian (EMS, family) history obtained from the patient/parents (if applicable) at bedside Chronic conditions affecting care: None Social determinants of health affecting care: None Consideration of admission (observation or admission): I considered escalation of care to admission for this patient, however given the reassuring workup, the patient is safe for outpatient management. Time of 1ST Reevaluation: 10:30 Reevaluation 1ST: Improved Patient Education/Counseling: Diagnosis, Treatment Family Education/Counseling: No Family Present SEPSIS Sepsis Screen Date sepsis recognized/suspect: Oct 10, 2024 Time Sepsis recognized/suspect: 823 Recent Procedure: No On Antibiotic Therapy: No Respiratory Rate >20: No Heart Rate >90: No Temp<36 C (96.8 F) or >38.3 C: No SBP <90 or MAP <65 mmHG: No New Acute Mental Status Change: No Is the patient on CPAP, BIPAP,: No Physician Orders Urinalysis (10/10/24 08:47) Vital Signs Date Time Temp Pulse Resp B/P (MAP) Pulse Ox O2 Delivery O2 Flow Rate FiO2 10/10/24 08:50 95 18 95 Room Air* 0 21 10/10/24 08:40 98.9 95 18 112/84 (93) 95 98.9 10/10/24 08:40 98.9 95 18 112/84 (93) 95 98.9 Departure 1 Departure Time of Disposition: 10:46 Impression: Primary Impression: PICC (peripherally inserted central catheter) in place Disposition: 01 HOME / SELF CARE / HOMELESS Condition: Stable Additional Instructions: Discharge Note: Continue on your medications. Drink plenty of fluids. Follow up with your primary Dr. If your condition becomes worse call and follow up with your primary Dr. for instructions or return to the ER if needed. Keep PICC site clean and dry. Thank you for visiting [facility]. Discharged With: Self Critical Care Note Critical Care Time?: No Stability Stability form required: No Heart Score Heart Score: Heart Score Response (Comments) Value History N/A 0 EKG N/A 0 Age N/A 0 Risk Factors N/A 0 Troponin N/A 0 Total 0 I personally scribed for MAVERICK BRAXTON NP ([email or web address]) on 10/10/24 at 10:41. Electronically submitted by Dominga Hahn ([email or web address]). I personally scribed for MAVERICK BRAXTON NP ([email or web address]) on 10/10/24 at 10:47. Electronically submitted by Dominga Hahn ([email or web address]). I personally scribed for MAVERICK BRAXTON NP ([email or web address]) on 10/10/24 at 10:50. Electronically submitted by Dominga Hahn ([email or web address]). MAVERICK BRAXTON NP Oct 10, 2024 10:41
== END 2024-10-10 10:28 | disposition home or self-care (01) ==
LOC: ER 08:24
DX: Z45.2 Encounter for adjustment and management of vascular access device (principal)

== ENCOUNTER 2024-12-07 12:08 | Emergency (ER) | payer MEDICAID ==
[~2024-12-07] VITALS: Ht 172.7 cm; Wt 82.0 kg
[2024-12-07 12:30] VITALS: PULSE 85; RESP 13; O2SAT 96
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
[2024-12-07] MEDS: SODIUM CHLORIDE 0.9% 1,000 ML IV ONE (15:41)
[2024-12-07 15:46] LABS: Urine Protein, UAD TRACE (Negative)
[2024-12-07] MEDS ORDERED: NITR-87 PO (16:50)
[2024-12-07 17:00] VITALS: BP 108/59; PULSE 75; RESP 14; TEMP 98.6; O2SAT 96
== END 2024-12-07 17:20 | disposition home or self-care (01) ==
LOC: ER 12:08
DX: N39.0 Urinary tract infection, site not specified (principal); E86.0 Dehydration; G82.50 Quadriplegia, unspecified; Z79.899 Other long term (current) drug therapy
CPT/HCPCS: 81001; 96360; 99285; J7030